=== PATIENT | male | born 1975 | race Caucasian/White ===

== ENCOUNTER 2016-11-26 13:58 | Emergency (ER) | payer MEDICAID ==
[~2016-11-26] VITALS: Ht 188 cm; Wt 77.1 kg
[2016-11-26] MEDS ORDERED: HYDRALAZINE HCL25 M1 PO (14:08)
[2016-11-26] MEDS ORDERED: LEXAPRO 20 MG T20 MG PO (14:08)
--- OUTSIDE RECORDS SUMMARY | 2016-11-26 14:22 | External Medical Summary Rpt ---
Author Author ELINA Address Unknown Phone Purpose Continuity of Care Document - through 2016
--- OUTSIDE RECORDS SUMMARY | 2016-11-26 14:22 | External Medical Summary Rpt ---
Author Author [employer] Organization [employer] Address Unknown Phone Unavailable Purpose Continuity of Care Document - through 2016
--- OUTSIDE RECORDS SUMMARY | 2016-11-26 14:22 | External Medical Summary Rpt ---
Demographics Preferred Language Jamaican Marital Status Unknown Mu-Ism Affiliation Unknown Race Unknown Ethnic Group Unknown Author Author ELINA Address Unknown Phone Immunization No patient found.
--- OUTSIDE RECORDS SUMMARY | 2016-11-26 14:22 | External Medical Summary Rpt ---
Author Author JAMILA Santacruz, JAMILA Santacruz Organization [employer] Address Unknown Phone Unavailable
--- OUTSIDE RECORDS SUMMARY | 2016-11-26 14:22 | External Medical Summary Rpt ---
Demographics Preferred Language Haitian Marital Status Unknown Gnosticism Affiliation Unknown Race Unknown Ethnic Group Unknown Author Author ELINA Address Unknown Phone Immunization No patient found.
[2016-11-26 14:37] LABS: HEMOGLOBIN 17.8 g/dL (14.1-18.0); LYMPH # 1.9 K/mm3 (0.7-4.5)
[2016-11-26] MEDS ORDERED: ETODOLAC200 MG PO (15:31)
--- NOTE | 2016-11-26 15:31 | Emergency Room Report ---
History of Present Illness Time Seen by [id number] Presenting Problem in Triage Pt arrived:Walked Presenting Problem:PT REPORTS HAS CHRONIC PANCREATITIS, REPORTS UPPER RIGHT QUADRANT AND BACK PAIN THAT BEGAN LASTNIGHT AND NAUSEA. 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 N Clinical Suspician of Infection? N Mental Status: 1 - Regular (Normal Baseline) Sepsis Risk:Low Sepsis Risk Have you (or family members/close friends) recently traveled outside the [place]? N If Yes, where/when: Have you had exposure to infectious disease within the past month? N TB? Other? Specify: Source patient, RN notes reviewed, RN/MD Exam Limitations no limitations Comment This is a 41-year-old male patient arriving to the emergency room with diffuse abdominal pain for the past 2-3 days. Patient advised that he has a history of chronic pancreatitis, secondary to alcohol abuse. He has developed his condition approximately 3 years ago, and advised he has been sober for the past 2 years. Patient denies any nausea, vomiting, fever or diarrhea at this time. He is new to this area, just moved here from [place]. He is a history of pancreatic pseudocyst, measuring 7 mm in diameter. ALLERGIES Coded Allergies: lisinopril (LIGHTHEADED 11/26/16) morphine (I-HIVES 11/26/16) Home Medications Reported Medications Escitalopram Oxalate (Lexapro 20MG) 20 MG PO DAILY Hydralazine Hcl (Hydralazine 25MG Tab) 25 MG PO BID History Medical History General CAD? No Angina: No [place]: No Hypertension? Yes Hyperlipidemia? No CHF? No DVT? No PE? No COPD? No Asthma? No Anemia? No GERD? Yes Gastric ulcers? No GI Bleed? No Hernia? No Thyroid Problems? No Hypothyroidism? No CVA? No Seizures? No Diabetes? No Renal Insuffiency? No End Stage Renal Disease? No UTI? No Stones? No GB Disease: No Nephritic Syndrome? No Asplenia? No Hepatitis? No Sickle Cell Disease? No Arthritis? No Migraines? No Cataracts? No Glaucoma? No MRSA? No HIV? No TB? No Anxiety? Yes Depression? No Cancer? No More? Yes Additional hx: CHRONIC PANCREATITIS Immunization Hx DT/Tetanus Unknown Surgical Hx Previous Surgery?Y GALLBLADDER ERCP Social History Smoking Hx Smoker: Current Every Day Smoker Tobacco: Yes Type Cigarettes Packs/day 1 1/2 - 2 Packs Alcohol Alcohol: No Review of Systems All Other Systems Reviewed and Negative Gastrointestinal abdominal pain Physical Exam Vital Signs Vital Signs Date Time Temp Pulse Resp B/P Pulse O2 O2 Flow FiO2 Ox Delivery Rate 11/26 1542 98.8 89 18 166/116 97 11/26 1404 99.0 107 18 162/113 98 General Appearance normal appearance, WD/WN, no apparent distress Respiratory Status Yes: trachea midline, chest symmetrical, non tender chest. No: respiratory distress. Lung Sounds bilateral: normal breath sounds, lungs clear. 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 No Comment 1515-patient reevaluated, he appears better, in no acute distress. Patient would like to establish himself with a new gastrointestinal specialist as well as any PCP. Will refer patient to Dr. Oralia Barreto and provided him with a PCP/ physician referral sheet for this area. This appears medically stable at this time, no additional workup is medically necessary. Results/Orders Laboratory Tests 11/26/16 1425: Sodium 141, Potassium 3.8, Chloride 106, Carbon Dioxide 25, BUN 8, Creatinine 1.0, Estimated Creat Clear 106, Estimated GFR (MDRD) 82, Glucose 125 H, Calcium 9.1, Total Bilirubin 0.5, AST 27, ALT 44, Alkaline Phosphatase 185 H, Total Protein 7.4, Albumin 3.8, Globulin 3.6 H, Albumin/Globulin Ratio 1.1, Amylase 24 L, Lipase 57 L, WBC 12.1 H, RBC 5.35, Hgb 17.8, Hct 51.7, MCV 96.7, RDW 13.5, Plt Count 239, MPV 7.6, Gran % 76.3, Gran # 9.3 H, Lymphocytes % 16.0, Monocytes % 4.9, Eosinophils % 2.3, Basophils % 0.5, Lymphocytes # 1.9, Monocytes # 0.6, Eosinophils # 0.3, Basophils # 0.1, PUBS MCHC 34.4, MCH 33.3 H , Alcohols 0 11/26/16 1402: Urine Color Cancelled, Urine Appearance Cancelled, Urine pH Cancelled, Ur Specific [place] Cancelled Current Medication Orders Sig/Luther Start time Last Medication Dose Route Stop Time Status Admin Sodium Chloride 10 ML PRN PRN 11/26 1415 DCD IV 11/27 1401 Orders Procedure Date/time Status ALCOHOL 11/26 1406 Complete IV SALINE LOCK 11/26 1402 Active LIPASE 11/26 1402 Complete CBC WITH AUTO DIFF 11/26 1402 Complete CHEM 12 PROFILE 11/26 1402 Complete AMYLASE 11/26 1402 Complete Departure Departure Time of Disposition 1529 Disposition DC Home or Self Care(routine) Clinical Impression Primary Impression: Chronic pancreatitis Qualifiers: Pancreatitis type: alcohol induced Qualified Code: K86.0 - Alcohol- induced chronic pancreatitis Condition STABLE Referrals ORALIA BARRETO: Today after leaving ER and schedule appointment Patient Instructions Chronic Pancreatitis, DI for Chronic Pain -- Adult Additional Instructions Please take the pain medications as directed, follow up with dr. Barreto within 2 days. Discharge Counseling Counseled pt/family regarding diagnosis, test results, medications/RX, home care, follow up needs Comment Please take the pain medications as directed, follow up with dr. Barreto within 2 days. Prescriptions Current Visit Scripts Etodolac 200 MG PO QIDP PRN pain #20 CAP ED Critical Care Critical Care No at 0843
[2016-11-26 15:42] VITALS: BP 166/116
== END 2016-11-26 15:42 | disposition home or self-care (01) ==
LOC: ER 13:58
PROVIDERS: Emergency Medicine
DX: K86.1 Other chronic pancreatitis (principal); Z79.899 Other long term (current) drug therapy; I10 Essential (primary) hypertension; K21.9 Gastro-esophageal reflux disease without esophagitis; Z72.0 Tobacco use

== ENCOUNTER 2016-12-19 16:19 | Observation (INO) | payer MEDICAID ==
[~2016-12-19] VITALS: Ht 185.4 cm; Wt 75.8 kg
[~2016-12-19 16:19] MED LIST: ETODOLAC200 MG PO; GABAPENTIN300 MG PO; HYDRALAZINE HCL25 M1 PO; HYDROCODONE/ACE1 TA5 PO; LEXAPRO 20 MG T20 MG PO
[2016-12-19 16:24] VITALS: BP 149/100
[2016-12-19 16:55] LABS: HEMOGLOBIN 17.6 g/dL (14.1-18.0); LYMPH # 2.2 K/mm3 (0.7-4.5); LYMPH % 23.7 % (10-50)
--- NOTE | 2016-12-19 18:06 | Emergency Room Report ---
History of Present Illness Time Seen by [id number] Presenting Problem in Triage Pt arrived:Walked Presenting Problem:PT REPORTS EPIGASTRIC AREA PAIN, N/V/D, THAT BEGAN THIS MORNING. PT REPORTS WAS SEEN AT PCP OFFICE TODAY AND WAS ADVISED TO GO TO THE ER FOR FURTHER EVALUATION. 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 N Clinical Suspician of Infection? N Mental Status: 1 - Regular (Normal Baseline) Sepsis Risk:Low Sepsis Risk Have you (or family members/close friends) recently traveled outside the [place]? N If Yes, where/when: Have you had exposure to infectious disease within the past month? N TB? Other? Specify: Source patient, RN notes reviewed, family, RN/MD Exam Limitations no limitations Comment This is a 41-year-old male patient arriving to the emergency room at the request of his family physician, Dr. Nugent, whom he has seen in [place] just SAL[employer]IST[employer]. She has been having severe abdominal pain, associated with intractable nausea and vomiting for the past 24 hour, unable to hold anything down. Patient has a history of a alcohol-induced chronic pancreatitis, currently being sober for the past one year. He has been previously worked up at [facility], by Dr. Long (GI specialist). He has recently moved to [facility], and he is looking for a family physician around this area. He has been admitted in [place] approximately one week ago in [place], where he was seen by another gastrointestinal specialist, Dr. Bowser. Dr Bowser has, according to the patient, advised him that no further procedures are medically necessary and he needs to let the pancreatitis "cool off". ALLERGIES Coded Allergies: lisinopril (LIGHTHEADED 11/26/16) morphine (I-HIVES 11/26/16) Home Medications Reported Medications Escitalopram Oxalate (Lexapro 20MG) 20 MG PO DAILY Hydralazine Hcl (Hydralazine 25MG Tab) 25 MG PO BID Gabapentin (Gabapentin 300MG) 300 MG PO QHS History Medical History General CAD? No Angina: No [place]: No Hypertension? Yes Hyperlipidemia? No CHF? No DVT? No PE? No COPD? No Asthma? No Anemia? No GERD? Yes Gastric ulcers? No GI Bleed? No Hernia? No Thyroid Problems? No Hypothyroidism? No CVA? No Seizures? No Diabetes? No Renal Insuffiency? No End Stage Renal Disease? No UTI? No Stones? No GB Disease: No Nephritic Syndrome? No Asplenia? No Hepatitis? No Sickle Cell Disease? No Arthritis? No Migraines? No Cataracts? No Glaucoma? No MRSA? No HIV? No TB? No Anxiety? Yes Depression? No Cancer? No More? Yes Additional hx: CHRONIC PANCREATITIS Immunization Hx DT/Tetanus Unknown Surgical Hx Previous Surgery?Y GALLBLADDER ERCP Social History Smoking Hx Smoker: Current Every Day Smoker Tobacco: Yes Type Cigarettes Packs/day 1 1/2 - 2 Packs Alcohol Alcohol: No Review of Systems All Other Systems Reviewed and Negative Gastrointestinal abdominal pain, nausea, vomiting Physical Exam Vital Signs Vital Signs Date Time Temp Pulse Resp B/P Pulse O2 O2 Flow FiO2 Ox Delivery Rate 12/19 1757 89 18 133/85 96 12/19 1657 18 12/19 1624 98.1 96 18 149/100 97 General Appearance normal appearance, WD/WN, moderate distress Respiratory Status Yes: trachea midline, chest symmetrical, non tender chest. No: respiratory distress. Lung Sounds bilateral: normal breath sounds, lungs clear. 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 No Comment 18:30 - Case discussed with Dr. Stout, advised of the CAT scan findings, presentation and findings. Patient refusing to be transferred to [place], stating that he has already seen Dr. Niels chaudhry/ Anel who has infomred him that no GI procedures are medically necessary at this time. 18:30-Dr. Stout agreeable with hospitalization, will keep patient nothing by mouth and continue IV hydration pain medications. Results/Orders Laboratory Tests 12/19/16 1645: Sodium 143, Potassium 3.6, Chloride 106, Carbon Dioxide 27, BUN 11, Creatinine 0.9, Estimated Creat Clear 118, Estimated GFR (MDRD) 93, Glucose 100, Calcium 8.9, Total Bilirubin 0.6, AST 47 H, ALT 131 H, Alkaline Phosphatase 258 H, Total Protein 7.2, Albumin 3.8, Globulin 3.4 H, Albumin/Globulin Ratio 1.1, Amylase 53, Lipase 501 H, WBC 9.1, RBC 5.30, Hgb 17.6, Hct 52.1 H, MCV 98.3 H , RDW 13.8, Plt Count 222, MPV 7.7, Gran % 65.5, Gran # 5.9, Lymphocytes % 23.7, Monocytes % 5.3, Eosinophils % 5.0, Basophils % 0.5, Lymphocytes # 2.2, Monocytes # 0.5, Eosinophils # 0.5 H, Basophils # 0.1, PUBS MCHC 33.8, MCH 33.2 H Current Medication Orders Sig/Luther Start time Last Medication Dose Route Stop Time Status Admin Iopamidol 75 ML ONCE ONE 12/19 1715 UNV 12/19 IV 12/19 171 1711 Sodium Chloride 10 ML ONCE ONE 12/19 1715 UNV 12/19 IV 12/19 1716 1711 Ketorolac 0 .STK-MED ONE 12/19 1651 DC Tromethamine .ROUTE Ondansetron HCl 0 .STK-MED ONE 12/19 1651 DC .ROUTE Sodium Chloride 1,000 ML .STK-MED ONE 12/19 1651 DC IV Ketorolac 30 MG ONCE ONE 12/19 1630 DC 12/19 Tromethamine IV 12/19 1631 1657 Ondansetron HCl 4 MG ONCE ONE 12/19 1630 DC 12/19 IV 12/19 1631 1657 Sodium Chloride 10 ML PRN PRN 12/19 1630 AC IV 12/20 1621 Sodium Chloride 1,000 ML .Q1H1M 12/19 1630 DC 12/19 IV 12/19 1730 1658 Sodium Chloride 10 ML PRN PRN 12/19 1630 AC IV 12/20 1623 Orders Procedure Date/time Status DIET-NOTHING BY MOUTH 12/[address] ABD & PELVIS W/ CONTRAST 12/[address] ABD/PELVIS REQ 12/19 1622 Complete IV SALINE LOCK 12/19 1622 Active URINALYSIS/COMPLETE 12/19 1622 Active LIPASE 12/19 1622 Complete DRUG ABUSE SCREEN (10) 12/19 1622 Active CBC WITH AUTO DIFF 12/19 1622 Complete CHEM 12 PROFILE 12/19 1622 Complete AMYLASE 12/19 1622 Complete XRAY/CT/US XRAY/CT/US CT abdomen, pelvis CT interpretation by discussed w/radiologist CT Results abnormal Comment CT scan abdomen and pelvis with IV contrast shows appearance compatible with mild, acute on chronic pancreatitis, secondary to the level of the head. Departure Departure Time of Disposition 1805 Disposition Still a Patient Clinical Impression Primary Impression: Acute pancreatitis Qualifiers: Pancreatitis type: unspecified pancreatitis type Acute pancreatitis complication: unspecified Qualified Code: K85.90 - Acute pancreatitis without necrosis or infection, unspecified Condition STABLE ED Critical Care Critical Care No at 1849
--- NOTE | 2016-12-19 18:06 | Emergency Room Report ---
History of Present Illness Time Seen by [id number] Presenting Problem in Triage Pt arrived:Walked Presenting Problem:PT REPORTS EPIGASTRIC AREA PAIN, N/V/D, THAT BEGAN THIS MORNING. PT REPORTS WAS SEEN AT PCP OFFICE TODAY AND WAS ADVISED TO GO TO THE ER FOR FURTHER EVALUATION. 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 N Clinical Suspician of Infection? N Mental Status: 1 - Regular (Normal Baseline) Sepsis Risk:Low Sepsis Risk Have you (or family members/close friends) recently traveled outside the [place]? N If Yes, where/when: Have you had exposure to infectious disease within the past month? N TB? Other? Specify: Source patient, RN notes reviewed, family, RN/MD Exam Limitations no limitations Comment This is a 41-year-old male patient arriving to the emergency room at the request of his family physician, Dr. 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 She has been having severe abdominal pain, associated with intractable nausea and vomiting for the past 24 hour, unable to hold anything down. Patient has a history of a alcohol-induced chronic pancreatitis, currently being sober for the past one year. He has been previously worked up at [facility], by Dr. Long (GI specialist). He has recently moved to [facility], and he is looking for a family physician around this area. He has been admitted in [place] approximately one week ago in [place], where he was seen by another gastrointestinal specialist, Dr. Bowser. Dr Bowser has, according to the patient, advised him that no further procedures are medically necessary and he needs to let the pancreatitis "cool off". ALLERGIES Coded Allergies: lisinopril (LIGHTHEADED 11/26/16) morphine (I-HIVES 11/26/16) Home Medications Reported Medications Escitalopram Oxalate (Lexapro 20MG) 20 MG PO DAILY Hydralazine Hcl (Hydralazine 25MG Tab) 25 MG PO BID Gabapentin (Gabapentin 300MG) 300 MG PO QHS History Medical History General CAD? No Angina: No [place]: No Hypertension? Yes Hyperlipidemia? No CHF? No DVT? No PE? No COPD? No Asthma? No Anemia? No GERD? Yes Gastric ulcers? No GI Bleed? No Hernia? No Thyroid Problems? No Hypothyroidism? No CVA? No Seizures? No Diabetes? No Renal Insuffiency? No End Stage Renal Disease? No UTI? No Stones? No GB Disease: No Nephritic Syndrome? No Asplenia? No Hepatitis? No Sickle Cell Disease? No Arthritis? No Migraines? No Cataracts? No Glaucoma? No MRSA? No HIV? No TB? No Anxiety? Yes Depression? No Cancer? No More? Yes Additional hx: CHRONIC PANCREATITIS Immunization Hx DT/Tetanus Unknown Surgical Hx Previous Surgery?Y GALLBLADDER ERCP Social History Smoking Hx Smoker: Current Every Day Smoker Tobacco: Yes Type Cigarettes Packs/day 1 1/2 - 2 Packs Alcohol Alcohol: No Review of Systems All Other Systems Reviewed and Negative Gastrointestinal abdominal pain, nausea, vomiting Physical Exam Vital Signs Vital Signs Date Time Temp Pulse Resp B/P Pulse O2 O2 Flow FiO2 Ox Delivery Rate 12/19 1757 89 18 133/85 96 12/19 1657 18 12/19 1624 98.1 96 18 149/100 97 General Appearance normal appearance, WD/WN, moderate distress Respiratory Status Yes: trachea midline, chest symmetrical, non tender chest. No: respiratory distress. Lung Sounds bilateral: normal breath sounds, lungs clear. 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 No Comment 18:30 - Case discussed with Dr. Stout, advised of the CAT scan findings, presentation and findings. Patient refusing to be transferred to [place], stating that he has already seen Dr. Niels chaudhry/ Anel who has infomred him that no GI procedures are medically necessary at this time. 18:30-Dr. Stout agreeable with hospitalization, will keep patient nothing by mouth and continue IV hydration pain medications. Results/Orders Laboratory Tests 12/19/16 1645: Sodium 143, Potassium 3.6, Chloride 106, Carbon Dioxide 27, BUN 11, Creatinine 0.9, Estimated Creat Clear 118, Estimated GFR (MDRD) 93, Glucose 100, Calcium 8.9, Total Bilirubin 0.6, AST 47 H, ALT 131 H, Alkaline Phosphatase 258 H, Total Protein 7.2, Albumin 3.8, Globulin 3.4 H, Albumin/Globulin Ratio 1.1, Amylase 53, Lipase 501 H, WBC 9.1, RBC 5.30, Hgb 17.6, Hct 52.1 H, MCV 98.3 H , RDW 13.8, Plt Count 222, MPV 7.7, Gran % 65.5, Gran # 5.9, Lymphocytes % 23.7, Monocytes % 5.3, Eosinophils % 5.0, Basophils % 0.5, Lymphocytes # 2.2, Monocytes # 0.5, Eosinophils # 0.5 H, Basophils # 0.1, PUBS MCHC 33.8, MCH 33.2 H Current Medication Orders Sig/Luther Start time Last Medication Dose Route Stop Time Status Admin Iopamidol 75 ML ONCE ONE 12/19 1715 UNV 12/19 IV 12/19 171 1711 Sodium Chloride 10 ML ONCE ONE 12/19 1715 UNV 12/19 IV 12/19 1716 1711 Ketorolac 0 .STK-MED ONE 12/19 1651 DC Tromethamine .ROUTE Ondansetron HCl 0 .STK-MED ONE 12/19 1651 DC .ROUTE Sodium Chloride 1,000 ML .STK-MED ONE 12/19 1651 DC IV Ketorolac 30 MG ONCE ONE 12/19 1630 DC 12/19 Tromethamine IV 12/19 1631 1657 Ondansetron HCl 4 MG ONCE ONE 12/19 1630 DC 12/19 IV 12/19 1631 1657 Sodium Chloride 10 ML PRN PRN 12/19 1630 AC IV 12/20 1621 Sodium Chloride 1,000 ML .Q1H1M 12/19 1630 DC 12/19 IV 12/19 1730 1658 Sodium Chloride 10 ML PRN PRN 12/19 1630 AC IV 12/20 1623 Orders Procedure Date/time Status DIET-NOTHING BY MOUTH 12/[address] ABD & PELVIS W/ CONTRAST 12/[address] ABD/PELVIS REQ 12/19 1622 Complete IV SALINE LOCK 12/19 1622 Active URINALYSIS/COMPLETE 12/19 1622 Active LIPASE 12/19 1622 Complete DRUG ABUSE SCREEN (10) 12/19 1622 Active CBC WITH AUTO DIFF 12/19 1622 Complete CHEM 12 PROFILE 12/19 1622 Complete AMYLASE 12/19 1622 Complete XRAY/CT/US XRAY/CT/US CT abdomen, pelvis CT interpretation by discussed w/radiologist CT Results abnormal Comment CT scan abdomen and pelvis with IV contrast shows appearance compatible with mild, acute on chronic pancreatitis, secondary to the level of the head. Departure Departure Time of Disposition 1805 Disposition Still a Patient Clinical Impression Primary Impression: Acute pancreatitis Qualifiers: Pancreatitis type: unspecified pancreatitis type Acute pancreatitis complication: unspecified Qualified Code: K85.90 - Acute pancreatitis without necrosis or infection, unspecified Condition STABLE ED Critical Care Critical Care No at 1843
[2016-12-19 19:28] VITALS: BP 149/102
[2016-12-19 20:30] VITALS: BP 122/69
[2016-12-19] MEDS ORDERED: GABAPENTIN300 MG PO (20:53)
[2016-12-19] MEDS ORDERED: METHOCARBAMOL500 MG PO (20:53)
[2016-12-19 23:43] VITALS: BP 116/71
[2016-12-20 04:11] VITALS: BP 145/101
--- NOTE | 2016-12-20 07:33 | PHARMACY CLINIC NOTE ---
Patient Demographics Patient Demographics Admission date: 12/19/16 Date: 12/20/16 Time: 0732 Allergies Coded Allergies: lisinopril (LIGHTHEADED 11/26/16) morphine (I-HIVES 11/26/16) HEIGHT- FT: 6 IN: 1.00 K.751 VTE General Information Labs: Laboratory Tests 12/19 1645 Hematology Hgb (14.1 - 18.0 g/dL) 17.6 Hct (42.0 - 52.0 %) 52.1 H Plt Count (142 - 424 K/mm3) 222 Disclaimer The following section includes nursing documentation that has been pulled in for pharmacy review. Patient's VTE score: 1 Patient's VTE Risk: VERY LOW RISK Clinical trial participant? No VTE prophylaxis NQF [id number] VTE prophylaxis ordered? Yes Type of prophylaxis/treatment: [place] at 0732
[2016-12-20 07:43] VITALS: BP 153/97
--- NOTE | 2016-12-20 08:34 | RADIOLOGY REPORT PS360 ---
CT ABD PELVIS W/ CONTRAST CLINICAL INDICATION: Generalized abdominal pain, history of pancreatitis ABD PAIN ORDERING PHYSICIAN: Vadim Stout MD PATIENT AGE: 41 years COMPARISON: None TECHNIQUE: Axial images obtained with sagittal and coronal reformats. PROCEDURE: Oral Contrast: None IV Contrast: 75 mL [id number]. FINDINGS: The lung bases are clear. No focal liver lesion is evident. There has been a prior cholecystectomy. There is prominent intra and extrahepatic biliary ductal dilatation. Pancreatic duct is also dilated with a somewhat beaded appearance the common bile duct measures up to 15 mm. There is a rounded isodensity in the pancreatic head at 7 mm. May be some mild edema of the pancreatic head. There is a somewhat involutional appearance on the pancreatic body and tail which could be secondary to prior pancreatitis or obstruction of the pancreatic duct from neoplasm. No obvious filling defects within the common bile duct. The spleen and adrenal glands are unremarkable. Nonobstructing 5 mm stone is present in the lower pole the right kidney. A 3 mm stone is present in the upper pole the right kidney. No hydronephrosis or ureteral calculi. No evidence of appendicitis. There is thickening of the descending and sigmoid colon which may be due to nondistention or colitis. No evidence of diverticulitis. No abscess no intestinal obstruction or free air. No acute bony anomalies. IMPRESSION: 1. Intra and extrahepatic biliary dilatation with also dilated pancreatic duct in the body and tail with somewhat attenuated appearance in the head of the pancreas. Pancreatic neoplasm could cause this finding. Distal common duct stricture or common duct stones are also considered. Consider MRCP or ERCP for further evaluation. 2. The pancreatic duct is dilated in the body and tail with somewhat deviated appearance which may be seen with chronic pancreatitis. Pancreatic head appears slightly edematous. Acute upon chronic pancreatitis is also a consideration. There are no previous studies available at this institution for comparison. A 7 mm isodense is present in the head of the pancreas and is nonspecific and could be part of the pancreatic duct. Small cystic neoplasm is a consideration as well. 3. Bilateral nephrolithiasis. 4. Thickened descending and sigmoid colon which may be related to colitis or nondistention
[2016-12-20 09:08] VITALS: BP 153/97
[2016-12-20] MEDS ORDERED: PERCOCET1 TAB PO (12:56)
--- NOTE | 2016-12-20 12:58 | ACUTE CARE PROGRESS NOTE (QUA) ---
Progress Notes Subjective Date 12/20/16 Time 1257 Note Patient's pain has diminished, he is tolerating a full liquid diet and wants to go home. Assessment/Plan This inpt stay is expected to cross 2 MNs from start of care No Comments: Discharge home now, f/u with GI in 3 days and primary MD in 6 days. 2 day supply of Percocet given to patient. at 1256
[2016-12-20 13:11] VITALS: BP 153/97
--- NOTE | 2016-12-20 17:04 | Discharge Summary Standard ---
HP/DC combined (FCA) Date of admission: 12/19/16 Chief complaint: Pancreatitis History: History of Present Illness: This is a 41-year-old male patient who came to the emergency room at the request of his family physician, Dr. Nugent, whom he had seen in [place] just prior to arrival. He has been having severe abdominal pain, associated with intractable nausea and vomiting, for the past 24 hour, unable to hold anything down. 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 He has been previously worked up at [facility], by Dr. Long (GI specialist). He has recently moved to [place], [place], and he is looking for a family physician around this area. He had been admitted in [place] approximately one week ago where he was seen by another gastrointestinal specialist, Dr. Bowser. Dr Bowser has, according to the patient, advised him that no further procedures are medically necessary and he needs to let the pancreatitis "cool off". Upon arrival, his lipase was elevated, amylase was normal. His CT was compatible with mild acute on chronic pancreatitis. The case was discussed with Dr. Stout and he was admitted for IV hydration and pain control. This morning he is resting quietly with pain and nausea both well-controlled with prn medications. He has had no further emesis, has been up ad grey without difficulty. He is feeling better and would like to discuss discharge with the doctor. Past Medical History: Medical History: CAD? No Angina: No [place]: No Hypertension? Yes Hyperlipidemia? No CHF? No DVT? No PE? No COPD? No Asthma? No Anemia? No GERD? Yes Gastric ulcers? No GI Bleed? No Hernia? No Thyroid Problems? No Hypothyroidism? No CVA? No Seizures? No Diabetes? No Renal Insuffiency? No UTI? Yes Stones? Yes GB Disease: No Nephritic Syndrome? No Asplenia? No Hepatitis? No Sickle Cell Disease? No Arthritis? No Migraines? No Cataracts? No Glaucoma? No MRSA? No HIV? No TB? No Anxiety? Yes Depression? Yes Cancer? No More? Yes Additional hx: CHRONIC PANCREATITIS Surgical history: Previous Surgery?Y 1. GALLBLADDER 2. ERCP 3. [place] toot extraction Medications: Reported Medications Gabapentin (Gabapentin 300MG) 600 MG PO QHS Gabapentin (Gabapentin 300MG) 300 MG PO QAM METHOCARBAMOL (Methocarbamol) 500 MG PO TID Escitalopram Oxalate (Lexapro 20MG) 20 MG PO DAILY Hydralazine Hcl (Hydralazine 25MG Tab) 25 MG PO BID Allergies: Coded Allergies: lisinopril (LIGHTHEADED 11/26/16) morphine (I-HIVES 11/26/16) Family History: Family history: Postive for: CAD, DM, HTN, cancer, hyperlipidemia, stroke. Negative for: CAD under 40 yrs of age, seizure. Social History: Smoking Hx: Tobacco: Yes Smoker: Current Every Day Smoker Type: Cigarettes Packs/day: < 1 Pack Are you/the child exposed to second-hand smoke: Yes Alcohol: Alcohol: No When was your last drink sober since 2015 Hx of Drug Use: Drug Use? 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 No Constitutional Positive for: chills, fatigue, weak. ENT No: nasal congestion, sinus problems, sore throat. Cardiovascular No: REYNA, chest pain, edema, palpitations. Respiratory No: shortness of air, productive cough (sputum). GI Positive for: GERD, abdominal pain, diarrhea, nausea, vomitting. No: constipation, hematemeis. (male) No: frequency, hematuria. Skin No: ecchymosis, itching, rash. Neurological No: change in LOC, confusion, dizziness, light headed, syncope. Immune/allergy No: itching. Eyes No: blurry vision, vision loss. Musculoskeletal Positive for: extremity pain, joint pain. Heme No: bleeding, bruising. Psychiatric Positive for: anxious. No: confused, change in mental status. Vital signs: Vital Signs Result Date Time Pulse Ox 97 12/19 1624 B/P 149/100 12/19 1624 Temp 98.1 12/19 1624 Pulse 96 12/19 1624 Resp 18 12/19 1624 O2 Delivery ROOM AIR 12/19 1928 Physical Exam: Exam: General appearance: alert, awake, no acute distress Eyes: anicteric, PERRLA ENT: mucous membranes moist, pharynx normal Neck: supple, no LAD Cardiovascular: regular rate & rhythm, normal peripheral pulses Respiratory: CTAB A&P ABD: non-distended, no rebound, soft, no guarding, no organomegaly, no palpable mass, bowel sounds present, ttp RUQ and epigastrium Extremities: moves all, no peripheral edema Skin: dry, intact, warm 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, 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, oriented, speech clear Lab data: Labs: Laboratory Tests 12/20/16 1105: Amylase 62, Lipase 635 H 12/19/16 1645: Sodium 143, Potassium 3.6, Chloride 106, Carbon Dioxide 27, BUN 11, Creatinine 0.9, Estimated Creat Clear 118, Estimated GFR (MDRD) 93, Glucose 100, Calcium 8.9, Total Bilirubin 0.6, AST 47 H, ALT 131 H, Alkaline Phosphatase 258 H, Total Protein 7.2, Albumin 3.8, Globulin 3.4 H, Albumin/Globulin Ratio 1.1, Amylase 53, Lipase 501 H, WBC 9.1, RBC 5.30, Hgb 17.6, Hct 52.1 H, MCV 98.3 H , RDW 13.8, Plt Count 222, MPV 7.7, Gran % 65.5, Gran # 5.9, Lymphocytes % 23.7, Monocytes % 5.3, Eosinophils % 5.0, Basophils % 0.5, Lymphocytes # 2.2, Monocytes # 0.5, Eosinophils # 0.5 H, Basophils # 0.1, PUBS MCHC 33.8, MCH 33.2 H Radiology results: Results: 12/19/16 CT Abdomen and Pelvis with IV contrast IMPRESSION: 1. Intra and extrahepatic biliary dilatation with also dilated pancreatic duct in the body and tail with somewhat attenuated appearance in the head of the pancreas. Pancreatic neoplasm could cause this finding. Distal common duct stricture or common duct stones are also considered. Consider MRCP or ERCP for further evaluation. 2. The pancreatic duct is dilated in the body and tail with somewhat deviated appearance which may be seen with chronic pancreatitis. Pancreatic head appears slightly edematous. Acute upon chronic pancreatitis is also a consideration. There are no previous studies available at this institution for comparison. A 7 mm isodense is present in the head of the pancreas and is nonspecific and could be part of the pancreatic duct. Small cystic neoplasm is a consideration as well. 3. Bilateral nephrolithiasis. 4. Thickened descending and sigmoid colon which may be related to colitis or nondistention Diagnosis(es): 1. Chronic pancreatitis 2. Acute pancreatitis Plan: Will continue IVF and advance diet. May consider discharge later today. Course: The patient was tolerating full liquid diet without emesis. His pain was well- managed. He made several trips off the nursing floor. By the afternoon it was felt that he was stable for discharge home. He was instructed to f/u with GI in 3 days and PCP in 6 days. Discharge medications: Continue taking these medications: Escitalopram Oxalate (Lexapro 20MG) 20 MG TABLET 20 MILLIGRAM ORAL DAILY Hydralazine Hcl (Hydralazine 25MG Tab) 25 MG TABLET 25 MILLIGRAM ORAL TWICE A DAY Gabapentin (Gabapentin 300MG) 300 MG CAPSULE 600 MILLIGRAM ORAL AT BEDTIME NIGHTLY Gabapentin (Gabapentin 300MG) 300 MG CAPSULE 300 MILLIGRAM ORAL EVERY MORNING METHOCARBAMOL (Methocarbamol) 500 MG TABLET 500 MILLIGRAM ORAL THREE TIMES A DAY Start taking the following new medications: OXYCODONE HCL/ACETAMINOPHEN (Percocet 5-325 MG Tablet) 1 EACH TABLET 1 TABLET ORAL EVERY 6 HOURS NEEDED as needed for MODERATE TO SEVERE PAIN Qty = 8 No Refills Disposition: Follow up with: OTHER Follow up: 6 DAYS Activity: Cont Current activity Diet: Continue same diet Discharge to: HOME Agency needed? N at 1704
--- OUTSIDE RECORDS SUMMARY | 2017-01-19 08:08 | External Medical Summary Rpt ---
Author Author , ELINA Vang ELINA Address Unknown Phone [email or web address] Purpose Continuity of Care Document - 11-26-2016 through 2016 Results Labs Lab Lab Date Result Refere Interp Status Commen Order Detail nces retati t Range on Drugs identified in Urine by Screen method (12-31-2016 13:40) Ampheta NEGATIV <1000 complet mine 017 E ed [Presen 13:40 ce] in Urine by Screen method 11-Hydr NEGATIV <50 complet oxy 017 E ed delta-9 13:40 tetrahy drocann abinol [Presen ce] in Unspeci fied specime n Urinalysis dipstick W Reflex Microscopic panel in Urine (12-31-2016 13:40) Bacteri 1+ O complet a 017 ed [Presen 13:40 ce] in Urine sedimen t by Light microsc opy Mucus OCC NONE complet [Presen 017 ed ce] in 13:40 Urine sedimen t by Light microsc opy Erythro 3-5 0 complet cytes 017 ed [Presen 13:40 ce] in Urine sedimen t by Light microsc opy Epithel OCC OCC complet ial 017 ed cells.s 13:40 quamous [Presen ce] in Urine sedimen t by Microsc opy high power field Urinalysis dipstick W Reflex Microscopic panel in Urine (12-31-2016 13:40) Appeara CLEAR CLEAR complet nce of 017 ed Urine 13:40 Bilirub 1+ NEG Abnorma complet in 017 l ed [Presen 13:40 ce] in Urine by Test strip Erythro TRACE-I NEG complet cytes 017 NTACT ed [Presen 13:40 ce] in Urine Color YELLOW YELLOW complet of 017 ed Urine 13:40 Ketones NEGATIV NEG complet 017 E ed [Presen 13:40 ce] in Urine by Automat ed test strip Mucus NEGATIV NEG complet [Presen 017 E ed ce] in 13:40 Urine sedimen t by Light microsc opy Nitrite NEGATIV NEG complet 017 E ed [Presen 13:40 ce] in Urine by Test strip Urobili 0.2 NEG complet nogen 017 ed [Presen 13:40 ce] in Urine by Test strip Urinalysis dipstick W Reflex Microscopic panel in Urine (12-28-2016 21:30) Bacteri 1+ O complet a 017 ed [Presen 21:30 ce] in Urine sedimen t by Light microsc opy Mucus 2+ NONE complet [Presen 017 ed ce] in 21:30 Urine sedimen t by Light microsc opy Erythro 3-5 0 complet cytes 017 ed [Presen 21:30 ce] in Urine sedimen t by Light microsc opy Epithel 12-28- 3-5 OCC complet ial 017 ed cells.s 21:30 quamous [Presen ce] in Urine sedimen t by Microsc opy high power field Drugs identified in Urine by Screen method (12-28-2016 21:30) Ampheta NEGATIV <1000 complet mine 017 E ed [Presen 21:30 ce] in Urine by Screen method 11-Hydr NEGATIV <50 complet oxy 017 E ed delta-9 21:30 tetrahy drocann abinol [Presen ce] in Unspeci fied specime n Urinalysis dipstick W Reflex Microscopic panel in Urine (12-28-2016 21:30) Appeara CLEAR CLEAR complet nce of 017 ed Urine 21:30 Bilirub NEGATIV NEG complet in 017 E ed [Presen 21:30 ce] in Urine by Test strip Erythro NEGATIV NEG complet cytes 017 E ed [Presen 21:30 ce] in Urine Color YELLOW YELLOW complet of 017 ed Urine 21:30 Ketones NEGATIV NEG complet 017 E ed [Presen 21:30 ce] in Urine by Automat ed test strip Mucus 12-28-2 NEGATIV NEG complet [Presen 017 E ed ce] in 21:30 Urine sedimen t by Light microsc opy Nitrite 16-2 NEGATIV NEG complet 017 E ed [Presen 21:30 ce] in Urine by Test strip Urobili -16-2 0.2 NEG complet nogen 017 ed [Presen 21:30 ce] in Urine by Test strip Urinalysis dipstick W Reflex Microscopic panel in Urine (12-23-2016 21:20) Bacteri TRACE O complet a 017 ed [Presen 21:20 ce] in Urine sedimen t by Light microsc opy Erythro OCC 0 complet cytes 017 ed [Presen 21:20 ce] in Urine sedimen t by Light microsc opy Epithel 12-23-2 OCC OCC complet ial 017 ed cells.s 21:20 quamous [Presen ce] in Urine sedimen t by Microsc opy high power field Urinalysis dipstick W Reflex Microscopic panel in Urine (12-23-2016 21:20) Appeara CLEAR CLEAR complet nce of 017 ed Urine 21:20 Bilirub NEGATIV NEG complet in 017 E ed [Presen 21:20 ce] in Urine by Test strip Erythro NEGATIV NEG complet cytes 017 E ed [Presen 21:20 ce] in Urine Color YELLOW YELLOW complet of 017 ed Urine 21:20 Ketones NEGATIV NEG complet 017 E ed [Presen 21:20 ce] in Urine by Automat ed test strip Mucus 12-23-2 NEGATIV NEG complet [Presen 017 E ed ce] in 21:20 Urine sedimen t by Light microsc opy Nitrite --2 NEGATIV NEG complet 017 E ed [Presen 21:20 ce] in Urine by Test strip Urobili --2 0.2 NEG complet nogen 017 ed [Presen 21:20 ce] in Urine by Test strip Drugs identified in Urine by Screen method (12-17-2016 15:40) Ampheta 12-17-2 NEGATIV <1000 complet mine 017 E ed [Presen 15:40 ce] in Urine by Screen method 11-Hydr NEGATIV <50 complet oxy 017 E ed delta-9 15:40 tetrahy drocann abinol [Presen ce] in Unspeci fied specime n Urinalysis dipstick W Reflex Microscopic panel in Urine (12-17-2016 15:40) Bacteri 2+ O complet a 017 ed [Presen 15:40 ce] in Urine sedimen t by Light microsc opy Mucus 4+ NONE complet [Presen 017 ed ce] in 15:40 Urine sedimen t by Light microsc opy Erythro OCC 0 complet cytes 017 ed [Presen 15:40 ce] in Urine sedimen t by Light microsc opy Epithel OCC OCC complet ial 017 ed cells.s 15:40 quamous [Presen ce] in Urine sedimen t by Microsc opy high power field Urinalysis dipstick W Reflex Microscopic panel in Urine (12-17-2016 15:40) Appeara CLEAR CLEAR complet nce of 017 ed Urine 15:40 Bilirub 2+ NEG Abnorma complet in 017 l ed [Presen 15:40 ce] in Urine by Test strip Erythro NEGATIV NEG complet cytes 017 E ed [Presen 15:40 ce] in Urine Color DK YELLOW complet of 017 YELLOW ed Urine 15:40 Ketones TRACE NEG Abnorma complet 017 l ed [Presen 15:40 ce] in Urine by Automat ed test strip Mucus NEGATIV NEG complet [Presen 017 E ed ce] in 15:40 Urine sedimen t by Light microsc opy Nitrite NEGATIV NEG complet 017 E ed [Presen 15:40 ce] in Urine by Test strip Urobili 1.0 NEG complet nogen 017 ed [Presen 15:40 ce] in Urine by Test strip
--- OUTSIDE RECORDS SUMMARY | 2017-01-19 08:08 | External Medical Summary Rpt ---
Author Author , JAMILA MARINO Address Unknown Phone [email or web address] Immunization Name Date Rout CVX Reac Dose Comm Prov Is Faci e tion ent ider Refu lity Give sed n Infl 08-2 Intr 150 0.5 Hist KHAF No RITE uenz 3-20 amus mL oric SUZIE AID0 a 17 cula al AYMA 3938 Quad r Info N Inj rmat ion - Sour ce Unsp ecif ied
--- OUTSIDE RECORDS SUMMARY | 2017-01-19 08:08 | External Medical Summary Rpt ---
Author Author , JAMILA MARINO Address Unknown Phone [email or web address] Immunization Name Date Rout CVX Reac Dose Comm Prov Is Faci e tion ent ider Refu lity Give sed n Infl 08-2 Intr 150 0.5 Hist KHAF No RITE uenz 3-20 amus mL oric SUZIE AID0 a 17 cula al AYMA 3938 Quad r Info N Inj rmat ion - Sour ce Unsp ecif ied
--- OUTSIDE RECORDS SUMMARY | 2017-01-19 08:08 | External Medical Summary Rpt ---
Author Author , ELINA Vang ELINA Address Unknown Phone [email or web address] Purpose Continuity of Care Document - 11-26-2016 [...]
--- OUTSIDE RECORDS SUMMARY | 2017-01-19 08:10 | External Medical Summary Rpt ---
Author Author JAMILA Santacruz, [employer] Organization [employer] Address Unknown Phone Unavailable Results DIARRHEA PANEL,PCR Observa Value Referen Units Interpr Notes Date tion ce etation Range Adenovi NOT NOT No No No Sep 20 conner DETECTE DETECTE informa informa informa 2017 40+41 D tion in tion in tion in 2:25 PM Ag source source source [Presen data data data ce] in Stool Aeromon NOT NOT No No No Sep 20 as DETECTE DETECTE informa informa informa 2017 salmoni D tion in tion in tion in 2:25 PM david source source source [Presen data data data ce] in Unspeci fied specime n Astrovi NOT NOT No No No Sep 20 conner DETECTE DETECTE informa informa informa 2017 [Presen D tion in tion in tion in 2:25 PM ce] in source source source Stool data data data by Electro n microsc opy Campylo NOT NOT No No No Sep 20 bacter DETECTE DETECTE informa informa informa 2017 sp Ab D tion in tion in tion in 2:25 PM [Presen source source source ce] in data data data Serum Clostri NOT NOT No No No Sep 20 dium DETECTE DETECTE informa informa informa 2017 diffici D tion in tion in tion in 2:25 PM le source source source toxin data data data A+B [Presen ce] in Stool Cryptos NOT NOT No No No Sep 20 poridiu DETECTE DETECTE informa informa informa 2017 m sp Ag D tion in tion in tion in 2:25 PM source source source [Presen data data data ce] in Unspeci fied specime n Cyclosp NOT NOT No No No Sep 20 ora DETECTE DETECTE informa informa informa 2017 cayetan D tion in tion in tion in 2:25 PM lashae source source source [Presen data data data ce] in Unspeci fied specime n Escheri NOT NOT No No No Sep 20 frankie DETECTE DETECTE informa informa informa 2017 coli D tion in tion in tion in 2:25 PM [Presen source source source ce] in data data data Unspeci fied specime n by Culture FDA method Escheri NOT NOT No No No Sep 20 frankie DETECTE DETECTE informa informa informa 2017 coli D tion in tion in tion in 2:25 PM [Presen source source source ce] in data data data Unspeci fied specime n by Culture FDA method Escheri NOT NOT No No No Sep 20 frankie DETECTE DETECTE informa informa informa 2017 coli D tion in tion in tion in 2:25 PM Shiga-l source source source werner data data data toxin 1 assa Escheri NOT NOT No No No Sep 20 frankie DETECTE DETECTE informa informa informa 2017 coli D tion in tion in tion in 2:25 PM [id number] source source source data data data [Presen ce] in Stool by Organis m specifi c culture Entamoe NOT NOT No No No Sep 20 ba DETECTE DETECTE informa informa informa 2017 histoly D tion in tion in tion in 2:25 PM kaiser source source source [Presen data data data ce] in Stool by Trichro me stain Giardia NOT NOT No No No Sep 20 DETECTE DETECTE informa informa informa 2017 lamblia D tion in tion in tion in 2:25 PM Ag source source source [Presen data data data ce] in Stool Norovir NOT NOT No No No Sep 20 us Ag DETECTE DETECTE informa informa informa 2017 [Presen D tion in tion in tion in 2:25 PM ce] in source source source Stool data data data Stool NOT NOT No No No Sep 20 Plesiom DETECTE DETECTE informa informa informa 2017 onas D tion in tion in tion in 2:25 PM shigell source source source oides data data data DNA detec Rotavir NOT NOT No No No Sep 20 us RNA DETECTE DETECTE informa informa informa 2017 detecti D tion in tion in tion in 2:25 PM on by source source source probe data data data and tar Salmone NOT NOT No No No Sep 20 lla sp DETECTE DETECTE informa informa informa 2017 DNA D tion in tion in tion in 2:25 PM [Identi source source source fier] data data data in Unspeci fied specime n by Probe & target amplifi cation method Caliciv NOT NOT No No No Sep 20 irus DETECTE DETECTE informa informa informa 2017 [Identi D tion in tion in tion in 2:25 PM fier] source source source in data data data Stool by Electro n microsc opy Escheri NOT NOT No No No Sep 20 frankie DETECTE DETECTE informa informa informa 2017 coli D tion in tion in tion in 2:25 PM [Presen source source source ce] in data data data Unspeci fied specime n by Culture FDA method Escheri NOT NOT No No No Sep 20 frankie DETECTE DETECTE informa informa informa 2017 coli D tion in tion in tion in 2:25 PM SXT source source source gene+H7 data data data gene [Identi fier] in Unspeci fied specime n by Probe & target amplifi cation method Vibrio NOT NOT No No No Sep 20 cholera DETECTE DETECTE informa informa informa 2017 e DNA D tion in tion in tion in 2:25 PM [Presen source source source ce] in data data data Unspeci fied specime n by Probe & target amplifi cation method Vibrio NOT NOT No No No Sep 20 sp DNA DETECTE DETECTE informa informa informa 2017 [Identi D tion in tion in tion in 2:25 PM fier] source source source in data data data Unspeci fied specime n by Probe & target amplifi cation method Vibrio NOT NOT No No No Sep 20 sp DETECTE DETECTE informa informa informa 2017 identif D tion in tion in tion in 2:25 PM ied in source source source Stool data data data by Organis m specifi c culture CBC W Auto Differential panel in Blood Observa Value Referen Units Interpr Notes Date tion ce etation Range Basophils 0 - 0.2 K/MM3 Normal No Sep 20 informati 2017 6:00 [#/volume on in AM ] in source Blood by data Automated count Basophils 0.1 - 2.0 % Normal No Sep 20 / informati 2017 6:00 leukocyte on in AM s in source Blood by data Automated count Eosinophi 0.0 - 0.4 K/mm3 High No Sep 20 ls informati 2017 6:00 [#/volume on in AM ] in source Blood by data Automated count Eosinophi 0.1 - % Normal No Sep 20 ls/100 12.0 informati 2016 6:00 leukocyte on in AM s in source Blood by data Automated count Granulocy 1.3 - 8.0 K/mm3 Normal No Sep 20 narendra informati 2016 6:00 [#/volume on in AM ] in source Blood by data Automated count Granulocy 37.0 - % Normal No Sep 20 narendra/100 80.0 informati 2017 6:00 leukocyte on in AM s in source Blood by data Automated count Hematocri 42.0 - % Normal No Sep 20 t [Volume 52.0 informati 2017 6:00 on in AM Fraction] source of Blood data Hemoglobi 14.1 - g/dL No No Sep 20 n 18.0 informati informati 2017 6:00 [Mass/vol on in on in AM ume] in source source Blood data data Lymphocyt 0.7 - 4.5 K/mm3 Normal No Sep 20 es informati 2017 6:00 [#/volume on in AM ] in source Unspecifi data ed specimen by Automated count Lymphocyt 10 - 50 % Normal No Sep 20 es informati 2017 6:00 [#/volume on in AM ] in source Unspecifi data ed specimen by Automated count Erythrocy 27 - 31.2 pg High No Sep 20 te mean informati 2017 6:00 corpuscul on in AM ar source hemoglobi data n [Entitic mass] Erythrocy 31.8 - g/dl Normal No Sep 20 te mean 35.4 informati 2017 6:00 corpuscul on in AM ar source hemoglobi data n concentra tion [Mass/vol ume] by Automated count Erythrocy 82.2 - fl Normal No Sep 20 te mean 97.8 informati 2016 6:00 corpuscul on in AM ar volume source [Entitic data volume] by Automated count Monocytes 0.1 - 1.0 K/mm3 Normal No Sep 20 informati 2016 6:00 [#/volume on in AM ] in source Blood by data Automated count Monocytes 1.7 - 9.3 % Normal No Sep 20 /100 informati 2017 6:00 leukocyte on in AM s in source Blood by data Automated count Platelet 7.4 - fl Normal No Sep 20 mean 10.4 informati 2017 6:00 volume on in AM [Entitic source volume] data in Blood by Automated count Platelets 142 - 424 K/mm3 No No Sep 20 informati informati 2017 6:00 [#/volume on in on in AM ] in source source Blood data data Erythrocy 4.6 - 6.2 M/mm3 Low No Sep 20 narendra informati 2017 6:00 [#/volume on in AM ] in source Amniotic data fluid Erythrocy 11.5 - % Normal No Sep 20 te 17.5 informati 2017 6:00 distribut on in AM ion width source [Entitic data volume] by Automated count Leukocyte 4.8 - K/MM3 Normal No Sep 20 s 10.8 informati 2017 6:00 [#/volume on in AM ] in source Blood data Basic metabolic panel in Blood Observa Value Referen Units Interpr Notes Date tion ce etation Range Urea 7 - 18 mg/dL Normal No Sep 20 nitrogen informati 2017 6:00 [Mass/vol on in AM ume] in source Serum or data Plasma Calcium 8.5 - mg/dL Low No Sep 20 [Mass/vol 10.1 informati 2017 6:00 ume] in on in AM Serum or source Plasma data Chloride 98 - 107 mmoL/L High No Sep 20 [Moles/vo informati 2017 6:00 lume] in on in AM Serum or source Plasma data Carbon 21.0 - mmoL/L Normal No Sep 20 dioxide, 32.0 informati 2017 6:00 total on in AM [Moles/vo source lume] in data Serum or Plasma Creatinin 0.70 - mg/dL Normal No Sep 20 e 1.30 informati 2017 6:00 [Mass/vol on in AM ume] in source Serum or data Plasma Creatinin 50 - 200 ML/MIN Normal No Sep 20 e renal informati 2017 6:00 clearance on in AM source predicted data by Cockcroft -Gault formula Estimated >60 ML/MIN No REFERENCE Sep 20 informati RANGE: 2017 6:00 glomerula on in >60 AM r source ML/MIN/1. filtratio data 73 SQUARE n rate METERSIf (GF this patient is -A merican, then multiply theresult by 1.210. Glucose 74 - 106 mg/dL High No Sep 20 [Mass/vol informati 2016 6:00 ume] in on in AM Serum or source Plasma data Potassium 3.5 - 5.1 mmoL/L Normal No Sep 20 informati 2016 6:00 [Moles/vo on in AM lume] in source Serum or data Plasma Sodium 136 - 145 mmoL/L Normal No Sep 20 [Moles/vo informati 2016 6:00 lume] in on in AM Serum or source Plasma data Amylase [Enzymatic activity/volume] in Serum or Plasma Observa Value Referen Units Interpr Notes Date tion ce etation Range Amylase 25 - 115 U/L Normal No Sep 20 [Enzymati informati 2016 6:00 c on in AM activity/ source volume] data in Serum or Plasma Lipase [Enzymatic activity/volume] in Serum or Plasma Observa Value Referen Units Interpr Notes Date tion ce etation Range Lipase 73 - 393 U/L Normal No Sep 20 [Enzymati informati 2016 6:00 c on in AM activity/ source volume] data in Serum or Plasma Drugs identified in Urine by Screen method Observa Value Referen Units Interpr Notes Date tion ce etation Range Positive urine drug screen samples are stored for 7 days. Contact the Lab if confirmation of positives is needed. Ampheta NEGATIV <1000 ng/mL No No Sep 19 mine E informa informa 2016 [Presen tion in tion in 1:40 PM ce] in source source Urine data data by Screen method Barbitura <200 ng/mL No No Sep 19 narendra informati informati 2017 1:40 [Mass/vol on in on in PM ume] in source source Urine by data data Screen method Benzodiaz 200 ng/mL ng/mL No No Sep 19 epines informati informati 2017 1:40 [Mass/vol on in on in PM ume] in source source Serum or data data Plasma by Screen method Cocaine <300 ng/g No No Sep 19 [Mass/vol informati informati 2017 1:40 ume] in on in on in PM Unspecifi source source ed data data specimen Methadone <300 ng/mL No No Sep 19 informati informati 2017 1:40 [Mass/vol on in on in PM ume] in source source Unspecifi data data ed specimen Opiates <300 ng/mL No No Sep 19 [Mass/vol informati informati 2017 1:40 ume] in on in on in PM Unspecifi source source ed data data specimen Phencycli <25 ng/mL No No Sep 19 dine informati informati 2017 1:40 [Mass/vol on in on in PM ume] in source source Unspecifi data data ed specimen 11-Hydr NEGATIV <50 ng/mL No No Sep 19 oxy E informa informa 2017 delta-9 tion in tion in 1:40 PM source source tetrahy data data drocann abinol [Presen ce] in Unspeci fied specime n Urinalysis dipstick W Reflex Microscopic panel in Urine Observa Value Referen Units Interpr Notes Date tion ce etation Range Appeara CLEAR CLEAR No No No Sep 19 nce of informa informa informa 2017 Urine tion in tion in tion in 1:40 PM source source source data data data Bacteri 1+ O No No No Sep 19 a informa informa informa 2016 [Presen tion in tion in tion in 1:40 PM ce] in source source source Urine data data data sedimen t by Light microsc opy Bilirub 1+ NEG No Abnorma BILIRUB Sep 19 in informa l IN 2017 [Presen tion in CONFIRM 1:40 PM ce] in source ED WITH Urine data by Test ICTOTES strip TICTOTE ST NEGATIV E Erythro TRACE-I NEG No No No Sep 19 cytes NTACT informa informa informa 2016 [Presen tion in tion in tion in 1:40 PM ce] in source source source Urine data data data Color YELLOW YELLOW No No No Sep 19 of informa informa informa 2017 Urine tion in tion in tion in 1:40 PM source source source data data data Glucose NEG No No No Sep 19 [Mass/vol informati informati informati 2017 1:40 ume] in on in on in on in PM Urine by source source source Test data data data strip Ketones NEGATIV NEG mg/dL No No Sep 19 E informa informa 2017 [Presen tion in tion in 1:40 PM ce] in source source Urine data data by Automat ed test strip Mucus NEGATIV NEG No No No Sep 19 [Presen E informa informa informa 2017 ce] in tion in tion in tion in 1:40 PM Urine source source source sedimen data data data t by Light microsc opy Mucus OCC NONE No No No Sep 19 [Presen informa informa informa 2016 ce] in tion in tion in tion in 1:40 PM Urine source source source sedimen data data data t by Light microsc opy Nitrite NEGATIV NEG No No No Sep E informa informa informa 2016 [Presen tion in tion in tion in 1:40 PM ce] in source source source Urine data data data by Test strip pH of 5.0 - 8.5 No Normal No Sep 19 Urine informati informati 2017 1:40 on in on in PM source source data data Protein NEG mg/dL No No Sep 19 [Mass/vol informati informati 2017 1:40 ume] in on in on in PM Urine by source source Automated data data test strip Erythro 3-5 0 rbc/hpf No No Sep 19 cytes informa informa 2016 [Presen tion in tion in 1:40 PM ce] in source source Urine data data sedimen t by Light microsc opy Specific 1.005 - No Normal No Sep 19 gravity 1.030 informati informati 2017 1:40 of Urine on in on in PM source source data data Epithel OCC OCC #/hpf No No Sep 19 ial informa informa 2017 cells.s tion in tion in 1:40 PM quamous source source data data [Presen ce] in Urine sedimen t by Microsc opy high power field Urobili 0.2 NEG E.U./dL No No Sep 19 nogen informa informa 2017 [Presen tion in tion in 1:40 PM ce] in source source Urine data data by Test strip Leukocyte O wbc/hpf No No Sep 19 s informati informati 2017 1:40 [#/volume on in on in PM ] in source source Urine data data Urinalysis dipstick W Reflex Microscopic panel in Urine Observa Value Referen Units Interpr Notes Date tion ce etation Range Appeara CLEAR CLEAR No No No Sep 19 nce of informa informa informa 2017 Urine tion in tion in tion in 1:40 PM source source source data data data Bilirub 1+ NEG No Abnorma BILIRUB Sep 19 in informa l IN 2017 [Presen tion in CONFIRM 1:40 PM ce] in source ED WITH Urine data by Test ICTOTES strip TICTOTE ST NEGATIV E Erythro TRACE-I NEG No No No Sep cytes NTACT informa informa informa 2016 [Presen tion in tion in tion in 1:40 PM ce] in source source source Urine data data data Color YELLOW YELLOW No No No Sep of informa informa informa 2017 Urine tion in tion in tion in 1:40 PM source source source data data data Glucose NEG No No No Sep [Mass/vol informati informati informati 2017 1:40 ume] in on in on in on in PM Urine by source source source Test data data data strip Ketones NEGATIV NEG mg/dL No No Dec 31 E informa informa 2016 [Presen tion in tion in 1:40 PM ce] in source source Urine data data by Automat ed test strip Mucus NEGATIV NEG No No No Dec 31 [Presen E informa informa informa 2016 ce] in tion in tion in tion in 1:40 PM Urine source source source sedimen data data data t by Light microsc opy Nitrite NEGATIV NEG No No No Sep E informa informa informa 2016 [Presen tion in tion in tion in 1:40 PM ce] in source source source Urine data data data by Test strip pH of 5.0 - 8.5 No Normal No Sep Urine informati informati 2017 1:40 on in on in PM source source data data Protein NEG mg/dL No No Sep [Mass/vol informati informati 2017 1:40 ume] in on in on in PM Urine by source source Automated data data test strip Specific 1.005 - No Normal No Sep 19 gravity 1.030 informati informati 2017 1:40 of Urine on in on in PM source source data data Urobili 0.2 NEG E.U./dL No No Sep nogen informa informa 2016 [Presen tion in tion in 1:40 PM ce] in source source Urine data data by Test strip Cancer Ag 19-9 [Units/volume] in Serum or Plasma Observa Value Referen Units Interpr Notes Date tion ce etation Range Cancer Ag 0 - 35 U/mL No Denise Sep 19 19-9 informati ECLIA 2017 1:21 [Units/vo on in methodolo PM lume] in source gyPerform Serum or data ed at: [facility] [place] [address] [address] [place], [place] [id number] Camp Attendant: Dustin Morrell PhD, Phone: [phone] CBC W Auto Differential panel in Blood Observa Value Referen Units Interpr Notes Date tion ce etation Range Basophils 0 - 0.2 K/MM3 Normal No Sep 19 informati 2017 1:21 [#/volume on in PM ] in source Blood by data Automated count Basophils 0.1 - 2.0 % Normal No Sep 19 /100 informati 2017 1:21 leukocyte on in PM s in source Blood by data Automated count Eosinophi 0.0 - 0.4 K/mm3 Normal No Sep 19 ls informati 2017 1:21 [#/volume on in PM ] in source Blood by data Automated count Eosinophi 0.1 - % Normal No Sep 19 ls/100 12.0 informati 2017 1:21 leukocyte on in PM s in source Blood by data Automated count Granulocy 1.3 - 8.0 K/mm3 High No Sep 19 narendra informati 2017 1:21 [#/volume on in PM ] in source Blood by data Automated count Granulocy 37.0 - % Normal No Sep 19 narendra/100 80.0 informati 2017 1:21 leukocyte on in PM s in source Blood by data Automated count Hematocri 42.0 - % High No Sep 19 t [Volume 52.0 informati 2017 1:21 on in PM Fraction] source of Blood data Hemoglobi 14.1 - g/dL High No Sep 19 n 18.0 alert informati 2017 1:21 [Mass/vol on in PM ume] in source Blood data Lymphocyt 0.7 - 4.5 K/mm3 Normal No Sep 19 es informati 2017 1:21 [#/volume on in PM ] in source Unspecifi data ed specimen by Automated count Lymphocyt 10 - 50 % Normal No Sep 19 es informati 2017 1:21 [#/volume on in PM ] in source Unspecifi data ed specimen by Automated count Erythrocy 27 - 31.2 pg High No Sep 19 te mean informati 2016 1:21 corpuscul on in PM ar source hemoglobi data n [Entitic mass] Erythrocy 31.8 - g/dl Normal No Sep 19 te mean 35.4 informati 2016 1:21 corpuscul on in PM ar source hemoglobi data n concentra tion [Mass/vol ume] by Automated count Erythrocy 82.2 - fl Normal No Sep 19 te mean 97.8 informati 2016 1:21 corpuscul on in PM ar volume source [Entitic data volume] by Automated count Monocytes 0.1 - 1.0 K/mm3 Normal No Sep 19 informati 2016 1:21 [#/volume on in PM ] in source Blood by data Automated count Monocytes 1.7 - 9.3 % Normal No Sep 19 /100 informati 2016 1:21 leukocyte on in PM s in source Blood by data Automated count Platelet 7.4 - fl Normal No Sep 19 mean 10.4 informati 2016 1:21 volume on in PM [Entitic source volume] data in Blood by Automated count Platelets 142 - 424 K/mm3 Normal No Sep 19 informati 2016 1:21 [#/volume on in PM ] in source Blood data Erythrocy 4.6 - 6.2 M/mm3 Normal No Sep 19 narendra informati 2016 1:21 [#/volume on in PM ] in source Amniotic data fluid Erythrocy 11.5 - % Normal No Sep 19 te 17.5 informati 2016 1:21 distribut on in PM ion width source [Entitic data volume] by Automated count Leukocyte 4.8 - K/MM3 High No Sep 19 s 10.8 informati 2016 1:21 [#/volume on in PM ] in source Blood data Amylase [Enzymatic activity/volume] in Serum or Plasma Observa Value Referen Units Interpr Notes Date tion ce etation Range Amylase 25 - 115 U/L Normal No Sep 19 [Enzymati informati 2016 1:21 c on in PM activity/ source volume] data in Serum or Plasma Comprehensive metabolic 2000 panel in Serum or Plasma Observa Value Referen Units Interpr Notes Date tion ce etation Range Albumin/G 1.1 - 1.8 No Normal No Sep 19 lobulin informati informati 2016 1:21 [Mass on in on in PM ratio] in source source Serum or data data Plasma Albumin 3.4 - 5.0 gm/dL No No Sep 19 [Mass/vol informati informati 2016 1:21 ume] in on in on in PM Serum or source source Plasma data data Alkaline 46 - 116 U/L High No Sep 19 phosphata informati 2017 1:21 se on in PM [Enzymati source c data activity/ volume] in Serum or Plasma Bilirubin 0.2 - 1.0 mg/dL Normal No Sep 19 .total informati 2017 1:21 [Mass/vol on in PM ume] in source Serum or data Plasma Urea 7 - 18 mg/dL Normal No Sep 19 nitrogen informati 2017 1:21 [Mass/vol on in PM ume] in source Serum or data Plasma Calcium 8.5 - mg/dL Normal No Sep 19 [Mass/vol 10.1 informati 2017 1:21 ume] in on in PM Serum or source Plasma data Chloride 98 - 107 mmoL/L Normal No Sep 19 [Moles/vo informati 2017 1:21 lume] in on in PM Serum or source Plasma data Carbon 21.0 - mmoL/L Normal No Sep 19 dioxide, 32.0 informati 2017 1:21 total on in PM [Moles/vo source lume] in data Serum or Plasma Creatinin 0.70 - mg/dL Normal No Sep 19 e 1.30 informati 2017 1:21 [Mass/vol on in PM ume] in source Serum or data Plasma Creatinin 50 - 200 ML/MIN Normal No Sep 19 e renal informati 2017 1:21 clearance on in PM source predicted data by Cockcroft -Gault formula Estimated >60 ML/MIN No REFERENCE Sep 19 informati RANGE: 2017 1:21 glomerula on in >60 PM r source ML/MIN/1. filtratio data 73 SQUARE n rate METERSIf (GF this patient is -A merican, then multiply theresult by 1.210. Globulin 1.3 - 3.2 gm/dL High No Sep 19 [Mass/vol informati 2017 1:21 ume] in on in PM Serum source data Glucose 74 - 106 mg/dL High No Sep 19 [Mass/vol informati 2017 1:21 ume] in on in PM Serum or source Plasma data Potassium 3.5 - 5.1 mmoL/L Normal No Sep 19 informati 2017 1:21 [Moles/vo on in PM lume] in source Serum or data Plasma Sodium 136 - 145 mmoL/L Normal No Sep 19 [Moles/vo informati 2017 1:21 lume] in on in PM Serum or source Plasma data Aspartate 15 - 37 U/L Normal No Sep 19 informati 2017 1:21 aminotran on in PM sferase source [Enzymati data c activity/ volume] in Serum or Plasma Alanine 12 - 78 U/L Normal No Sep 19 aminotran inform2016 1:21 sferase on in PM [Enzymati source c data activity/ volume] in Serum or Plasma Protein 6.4 - 8.2 gm/dL Normal No Sep 19 [Mass/vol informati 2016 1:21 ume] in on in PM Serum or source Plasma data Lipase [Enzymatic activity/volume] in Serum or Plasma Observa Value Referen Units Interpr Notes Date tion ce etation Range Lipase 73 - 393 U/L Normal No Sep 19 [Enzymati informati 2016 1:21 c on in PM activity/ source volume] data in Serum or Plasma CBC W Auto Differential panel in Blood Observa Value Referen Units Interpr Notes Date tion ce etation Range Basophils 0 - 0.2 K/MM3 Normal No Sep 16 inform2016 9:41 [#/volume on in PM ] in source Blood by data Automated count Basophils 0.1 - 2.0 % Normal No Sep 16 /100 informati 2017 9:41 leukocyte on in PM s in source Blood by data Automated count Eosinophi 0.0 - 0.4 K/mm3 Normal No Sep 16 ls informati 2016 9:41 [#/volume on in PM ] in source Blood by data Automated count Eosinophi 0.1 - % Normal No Sep 16 ls/100 12.0 informati 2016 9:41 leukocyte on in PM s in source Blood by data Automated count Granulocy 1.3 - 8.0 K/mm3 Normal No Sep 16 narendra informati 2016 9:41 [#/volume on in PM ] in source Blood by data Automated count Granulocy 37.0 - % Normal No Sep 16 narendra/100 80.0 informati 2016 9:41 leukocyte on in PM s in source Blood by data Automated count Hematocri 42.0 - % Normal No Sep 16 t [Volume 52.0 informati 2016 9:41 on in PM Fraction] source of Blood data Hemoglobi 14.1 - g/dL Normal No Sep 16 n 18.0 informati 2016 9:41 [Mass/vol on in PM ume] in source Blood data Lymphocyt 0.7 - 4.5 K/mm3 Normal No Sep 16 es informati 2017 9:41 [#/volume on in PM ] in source Unspecifi data ed specimen by Automated count Lymphocyt 10 - 50 % Normal No Sep 16 es informati 2017 9:41 [#/volume on in PM ] in source Unspecifi data ed specimen by Automated count Erythrocy 27 - 31.2 pg High No Sep 16 te mean informati 2017 9:41 corpuscul on in PM ar source hemoglobi data n [Entitic mass] Erythrocy 31.8 - g/dl Normal No Sep 16 te mean 35.4 informati 2017 9:41 corpuscul on in PM ar source hemoglobi data n concentra tion [Mass/vol ume] by Automated count Erythrocy 82.2 - fl Normal No Sep 16 te mean 97.8 informati 2017 9:41 corpuscul on in PM ar volume source [Entitic data volume] by Automated count Monocytes 0.1 - 1.0 K/mm3 Normal No Sep 16 informati 2017 9:41 [#/volume on in PM ] in source Blood by data Automated count Monocytes 1.7 - 9.3 % Normal No Sep 16 /100 informati 2017 9:41 leukocyte on in PM s in source Blood by data Automated count Platelet 7.4 - fl Normal No Sep 16 mean 10.4 informati 2017 9:41 volume on in PM [Entitic source volume] data in Blood by Automated count Platelets 142 - 424 K/mm3 No No Sep 16 informati informati 2017 9:41 [#/volume on in on in PM ] in source source Blood data data Erythrocy 4.6 - 6.2 M/mm3 Normal No Sep 16 narendra informati 2017 9:41 [#/volume on in PM ] in source Amniotic data fluid Erythrocy 11.5 - % Normal No Sep 16 te 17.5 informati 2017 9:41 distribut on in PM ion width source [Entitic data volume] by Automated count Leukocyte 4.8 - K/MM3 High No Sep 16 s 10.8 informati 2017 9:41 [#/volume on in PM ] in source Blood data Comprehensive metabolic 2000 panel in Serum or Plasma Observa Value Referen Units Interpr Notes Date tion ce etation Range Albumin/G 1.1 - 1.8 No Normal No Sep 16 lobulin informati informati 2017 9:41 [Mass on in on in PM ratio] in source source Serum or data data Plasma Albumin 3.4 - 5.0 gm/dL Normal No Sep 16 [Mass/vol informati 2017 9:41 ume] in on in PM Serum or source Plasma data Alkaline 46 - 116 U/L High No Sep 16 phosphata informati 2017 9:41 se on in PM [Enzymati source c data activity/ volume] in Serum or Plasma Bilirubin 0.2 - 1.0 mg/dL Normal No Sep 16 .total informati 2017 9:41 [Mass/vol on in PM ume] in source Serum or data Plasma Urea 7 - 18 mg/dL Normal No Sep 16 nitrogen informati 2017 9:41 [Mass/vol on in PM ume] in source Serum or data Plasma Calcium 8.5 - mg/dL Normal No Sep 16 [Mass/vol 10.1 informati 2017 9:41 ume] in on in PM Serum or source Plasma data Chloride 98 - 107 mmoL/L Normal No Sep 16 [Moles/vo informati 2017 9:41 lume] in on in PM Serum or source Plasma data Carbon 21.0 - mmoL/L Normal No Sep 16 dioxide, 32.0 informati 2017 9:41 total on in PM [Moles/vo source lume] in data Serum or Plasma Creatinin 0.70 - mg/dL Normal No Sep 16 e 1.30 informati 2017 9:41 [Mass/vol on in PM ume] in source Serum or data Plasma Creatinin 50 - 200 ML/MIN Normal No Sep 16 e renal informati 2017 9:41 clearance on in PM source predicted data by Cockcroft -Gault formula Estimated >60 ML/MIN No REFERENCE Sep 16 informati RANGE: 2017 9:41 glomerula on in >60 PM r source ML/MIN/1. filtratio data 73 SQUARE n rate METERSIf (GF this patient is -A merican, then multiply theresult by 1.210. Globulin 1.3 - 3.2 gm/dL High No Sep 16 [Mass/vol informati 2017 9:41 ume] in on in PM Serum source data Glucose 74 - 106 mg/dL High No Sep 16 [Mass/vol informati 2016 9:41 ume] in on in PM Serum or source Plasma data Potassium 3.5 - 5.1 mmoL/L Normal POTASSIUM Sep 16 August 9:41 [Moles/vo FALSELY PM lume] in ELEVATED Serum or DUE TO Plasma SLIGHTHEM OLYSIS/LI PEMIA Sodium 136 - 145 mmoL/L Normal No Dec 16 [Moles/vo informati 2016 9:41 lume] in on in PM Serum or source Plasma data Aspartate 15 - 37 U/L Normal AST AugustDec 282016 9:41 aminotran FALSELY PM sferase ELEVATED [Enzymati DUE TO c SLIGHT activity/ HEMOLYSIS volume] /LIPEMIA in Serum or Plasma Alanine 12 - 78 U/L Normal No Dec 16 aminotran informati 2016 9:41 sferase on in PM [Enzymati source c data activity/ volume] in Serum or Plasma Protein 6.4 - 8.2 gm/dL Normal Dec 28 [Mass/vol informati 2016 9:41 ume] in on in PM Serum or source Plasma data Amylase [Enzymatic activity/volume] in Serum or Plasma Observa Value Referen Units Interpr Notes Date tion ce etation Range Amylase 25 - 115 U/L Normal Dec 28 [Enzymati informati 2016 9:41 c on in PM activity/ source volume] data in Serum or Plasma Lipase [Enzymatic activity/volume] in Serum or Plasma Observa Value Referen Units Interpr Notes Date tion ce etation Range Lipase 73 - 393 U/L Normal Dec 28 [Enzymati informati 2016 9:41 c on in PM activity/ source volume] data in Serum or Plasma Urinalysis dipstick W Reflex Microscopic panel in Urine Observa Value Referen Units Interpr Notes Date tion ce etation Range Appeara CLEAR CLEAR No No No Dec 16 nce of informa informa informa 2016 Urine tion in tion in tion in 9:30 PM source source source data data data Bacteri 1+ O No No No Dec 16 a informa informa informa 2016 [Presen tion in tion in tion in 9:30 PM ce] in source source source Urine data data data sedimen t by Light microsc opy Bilirub NEGATIV NEG No No No Dec 16 in E informa informa informa 2016 [Presen tion in tion in tion in 9:30 PM ce] in source source source Urine data data data by Test strip Erythro NEGATIV NEG No No No Dec 16 cytes E informa informa informa 2017 [Presen tion in tion in tion in 9:30 PM ce] in source source source Urine data data data Color YELLOW YELLOW No No No Sep 16 of informa informa informa 2017 Urine tion in tion in tion in 9:30 PM source source source data data data Glucose NEG No No No Sep 16 [Mass/vol informati informati informati 2017 9:30 ume] in on in on in on in PM Urine by source source source Test data data data strip Ketones NEGATIV NEG mg/dL No No Sep 16 E informa informa 2017 [Presen tion in tion in 9:30 PM ce] in source source Urine data data by Automat ed test strip Mucus NEGATIV NEG No No No Sep 16 [Presen E informa informa informa 2016 ce] in tion in tion in tion in 9:30 PM Urine source source source sedimen data data data t by Light microsc opy Mucus 2+ NONE No No No Sep 16 [Presen informa informa informa 2016 ce] in tion in tion in tion in 9:30 PM Urine source source source sedimen data data data t by Light microsc opy Nitrite NEGATIV NEG No No No Sep 16 E informa informa informa 2016 [Presen tion in tion in tion in 9:30 PM ce] in source source source Urine data data data by Test strip pH of 5.0 - 8.5 No Normal No Sep 16 Urine informati informati 2017 9:30 on in on in PM source source data data Protein NEG mg/dL No No Sep 16 [Mass/vol informati informati 2017 9:30 ume] in on in on in PM Urine by source source Automated data data test strip Erythro 3-5 0 rbc/hpf No No Sep 16 cytes informa informa 2017 [Presen tion in tion in 9:30 PM ce] in source source Urine data data sedimen t by Light microsc opy Specific 1.005 - No Normal No Sep 16 gravity 1.030 informati informati 2017 9:30 of Urine on in on in PM source source data data Epithel 3-5 OCC #/hpf No No Sep 16 ial informa informa 2017 cells.s tion in tion in 9:30 PM quamous source source data data [Presen ce] in Urine sedimen t by Microsc opy high power field Urobili 0.2 NEG E.U./dL No No Sep 16 nogen informa informa 2017 [Presen tion in tion in 9:30 PM ce] in source source Urine data data by Test strip Leukocyte O wbc/hpf No No Sep 16 s informati informati 2017 9:30 [#/volume on in on in PM ] in source source Urine data data Drugs identified in Urine by Screen method Observa Value Referen Units Interpr Notes Date tion ce etation Range Positive urine drug screen samples are stored for 7 days. Contact the Lab if confirmation of positives is needed. Ampheta NEGATIV <1000 ng/mL No No Sep 16 mine E informa informa 2017 [Presen tion in tion in 9:30 PM ce] in source source Urine data data by Screen method Barbitura <200 ng/mL No No Sep 16 narendra informati informati 2017 9:30 [Mass/vol on in on in PM ume] in source source Urine by data data Screen method Benzodiaz 200 ng/mL ng/mL No No Sep 16 epines informati informati 2017 9:30 [Mass/vol on in on in PM ume] in source source Serum or data data Plasma by Screen method Cocaine <300 ng/g No No Sep 16 [Mass/vol informati informati 2017 9:30 ume] in on in on in PM Unspecifi source source ed data data specimen Methadone <300 ng/mL No No Sep 16 informati informati 2017 9:30 [Mass/vol on in on in PM ume] in source source Unspecifi data data ed specimen Opiates <300 ng/mL No No Sep 16 [Mass/vol informati informati 2017 9:30 ume] in on in on in PM Unspecifi source source ed data data specimen Phencycli <25 ng/mL No No Sep 16 dine informati informati 2017 9:30 [Mass/vol on in on in PM ume] in source source Unspecifi data data ed specimen 11-Hydr NEGATIV <50 ng/mL No No Sep 16 oxy E informa informa 2017 delta-9 tion in tion in 9:30 PM source source tetrahy data data drocann abinol [Presen ce] in Unspeci fied specime n Urinalysis dipstick W Reflex Microscopic panel in Urine Observa Value Referen Units Interpr Notes Date tion ce etation Range Appeara CLEAR CLEAR No No No Sep 16 nce of informa informa informa 2017 Urine tion in tion in tion in 9:30 PM source source source data data data Bilirub NEGATIV NEG No No No Sep 16 in E informa informa informa 2017 [Presen tion in tion in tion in 9:30 PM ce] in source source source Urine data data data by Test strip Erythro NEGATIV NEG No No No Sep 16 cytes E informa informa informa 2017 [Presen tion in tion in tion in 9:30 PM ce] in source source source Urine data data data Color YELLOW YELLOW No No No Sep 16 of informa informa informa 2017 Urine tion in tion in tion in 9:30 PM source source source data data data Glucose NEG No No No Sep 16 [Mass/vol informati informati informati 2017 9:30 ume] in on in on in on in PM Urine by source source source Test data data data strip Ketones NEGATIV NEG mg/dL No No Sep 16 E informa informa 2016 [Presen tion in tion in 9:30 PM ce] in source source Urine data data by Automat ed test strip Mucus NEGATIV NEG No No No Sep 16 [Presen E informa informa informa 2016 ce] in tion in tion in tion in 9:30 PM Urine source source source sedimen data data data t by Light microsc opy Nitrite NEGATIV NEG No No No Sep 16 E informa informa informa 2016 [Presen tion in tion in tion in 9:30 PM ce] in source source source Urine data data data by Test strip pH of 5.0 - 8.5 No Normal No Sep 16 Urine informati informati 2017 9:30 on in on in PM source source data data Protein NEG mg/dL No No Sep 16 [Mass/vol informati informati 2017 9:30 ume] in on in on in PM Urine by source source Automated data data test strip Specific 1.005 - No Normal No Sep 16 gravity 1.030 informati informati 2017 9:30 of Urine on in on in PM source source data data Urobili 0.2 NEG E.U./dL No No Sep 16 nogen informa informa 2017 [Presen tion in tion in 9:30 PM ce] in source source Urine data data by Test strip Amylase [Enzymatic activity/volume] in Serum or Plasma Observa Value Referen Units Interpr Notes Date tion ce etation Range Amylase 25 - 115 U/L Normal No Sep 11 [Enzymati informati 2017 9:40 c on in PM activity/ source volume] data in Serum or Plasma Comprehensive metabolic 2000 panel in Serum or Plasma Observa Value Referen Units Interpr Notes Date tion ce etation Range Albumin/G 1.1 - 1.8 No Normal No Sep 11 lobulin informati informati 2017 9:40 [Mass on in on in PM ratio] in source source Serum or data data Plasma Albumin 3.4 - 5.0 gm/dL Normal No Sep 11 [Mass/vol informati 2017 9:40 ume] in on in PM Serum or source Plasma data Alkaline 46 - 116 U/L High No Sep 11 phosphata informati 2017 9:40 se on in PM [Enzymati source c data activity/ volume] in Serum or Plasma Bilirubin 0.2 - 1.0 mg/dL Normal No Sep 11 .total informati 2017 9:40 [Mass/vol on in PM ume] in source Serum or data Plasma Urea 7 - 18 mg/dL Normal No Sep 11 nitrogen informati 2017 9:40 [Mass/vol on in PM ume] in source Serum or data Plasma Calcium 8.5 - mg/dL Normal No Sep 11 [Mass/vol 10.1 informati 2017 9:40 ume] in on in PM Serum or source Plasma data Chloride 98 - 107 mmoL/L Normal No Sep 11 [Moles/vo informati 2017 9:40 lume] in on in PM Serum or source Plasma data Carbon 21.0 - mmoL/L Normal No Sep 11 dioxide, 32.0 informati 2017 9:40 total on in PM [Moles/vo source lume] in data Serum or Plasma Creatinin 0.70 - mg/dL Normal No Sep 11 e 1.30 informati 2017 9:40 [Mass/vol on in PM ume] in source Serum or data Plasma Creatinin 50 - 200 ML/MIN Normal No Sep 11 e renal informati 2017 9:40 clearance on in PM source predicted data by Cockcroft -Gault formula Estimated >60 ML/MIN No REFERENCE Sep 11 informati RANGE: 2017 9:40 glomerula on in >60 PM r source ML/MIN/1. filtratio data 73 SQUARE n rate METERSIf (GF this patient is -A merican, then multiply theresult by 1.210. Globulin 1.3 - 3.2 gm/dL High No Sep 11 [Mass/vol informati 2016 9:40 ume] in on in PM Serum source data Glucose 74 - 106 mg/dL High No Sep 11 [Mass/vol informati 2016 9:40 ume] in on in PM Serum or source Plasma data Potassium 3.5 - 5.1 mmoL/L Normal No Sep 11 inform2016 9:40 [Moles/vo on in PM lume] in source Serum or data Plasma Sodium 136 - 145 mmoL/L Normal No Sep 11 [Moles/vo informati 2016 9:40 lume] in on in PM Serum or source Plasma data Aspartate 15 - 37 U/L High No Sep 11 inform2016 9:40 aminotran on in PM sferase source [Enzymati data c activity/ volume] in Serum or Plasma Alanine 12 - 78 U/L High No Sep 11 aminotran informati 2016 9:40 sferase on in PM [Enzymati source c data activity/ volume] in Serum or Plasma Protein 6.4 - 8.2 gm/dL Normal No Sep 11 [Mass/vol informati 2016 9:40 ume] in on in PM Serum or source Plasma data Lipase [Enzymatic activity/volume] in Serum or Plasma Observa Value Referen Units Interpr Notes Date tion ce etation Range Lipase 73 - 393 U/L Normal No Sep 11 [Enzymati informati 2017 9:40 c on in PM activity/ source volume] data in Serum or Plasma CBC W Auto Differential panel in Blood Observa Value Referen Units Interpr Notes Date tion ce etation Range Basophils 0 - 0.2 K/MM3 Normal No Sep 11 2016 9:40 [#/volume on in PM ] in source Blood by data Automated count Basophils 0.1 - 2.0 % Normal No Sep 11 / informati 2016 9:40 leukocyte on in PM s in source Blood by data Automated count Eosinophi 0.0 - 0.4 K/mm3 Normal No Sep 11 ls ati 2016 9:40 [#/volume on in PM ] in source Blood by data Automated count Eosinophi 0.1 - % Normal No Sep 11 ls/100 12.0 informati 2017 9:40 leukocyte on in PM s in source Blood by data Automated count Granulocy 1.3 - 8.0 K/mm3 High No Sep 11 narendra informati 2017 9:40 [#/volume on in PM ] in source Blood by data Automated count Granulocy 37.0 - % Normal No Sep 11 narendra/100 80.0 informati 2017 9:40 leukocyte on in PM s in source Blood by data Automated count Hematocri 42.0 - % Normal No Sep 11 t [Volume 52.0 informati 2016 9:40 on in PM Fraction] source of Blood data Hemoglobi 14.1 - g/dL Normal No Sep 11 n 18.0 informati 2017 9:40 [Mass/vol on in PM ume] in source Blood data Lymphocyt 0.7 - 4.5 K/mm3 Normal No Sep 11 es informati 2017 9:40 [#/volume on in PM ] in source Unspecifi data ed specimen by Automated count Lymphocyt 10 - 50 % Normal No Sep 11 es informati 2016 9:40 [#/volume on in PM ] in source Unspecifi data ed specimen by Automated count Erythrocy 27 - 31.2 pg High No Sep 11 te mean informati 2017 9:40 corpuscul on in PM ar source hemoglobi data n [Entitic mass] Erythrocy 31.8 - g/dl Normal No Sep 11 te mean 35.4 informati 2016 9:40 corpuscul on in PM ar source hemoglobi data n concentra tion [Mass/vol ume] by Automated count Erythrocy 82.2 - fl High No Sep 11 te mean 97.8 informati 2017 9:40 corpuscul on in PM ar volume source [Entitic data volume] by Automated count Monocytes 0.1 - 1.0 K/mm3 Normal No Sep 11 informati 2016 9:40 [#/volume on in PM ] in source Blood by data Automated count Monocytes 1.7 - 9.3 % Normal No Sep 11 /100 informati 2017 9:40 leukocyte on in PM s in source Blood by data Automated count Platelet 7.4 - fl Normal No Sep 11 mean 10.4 informati 2016 9:40 volume on in PM [Entitic source volume] data in Blood by Automated count Platelets 142 - 424 K/mm3 Normal No Sep 11 informati 2017 9:40 [#/volume on in PM ] in source Blood data Erythrocy 4.6 - 6.2 M/mm3 Normal No Sep 11 narendra informati 2016 9:40 [#/volume on in PM ] in source Amniotic data fluid Erythrocy 11.5 - % Normal No Sep 11 te 17.5 informati 2017 9:40 distribut on in PM ion width source [Entitic data volume] by Automated count Leukocyte 4.8 - K/MM3 Normal No Sep 11 s 10.8 informati 2016 9:40 [#/volume on in PM ] in source Blood data Urinalysis dipstick W Reflex Microscopic panel in Urine Observa Value Referen Units Interpr Notes Date tion ce etation Range Appeara CLEAR CLEAR No No No Sep 11 nce of informa informa informa 2016 Urine tion in tion in tion in 9:20 PM source source source data data data Bacteri TRACE O No No No Sep 11 a informa informa informa 2016 [Presen tion in tion in tion in 9:20 PM ce] in source source source Urine data data data sedimen t by Light microsc opy Bilirub NEGATIV NEG No No No Sep 11 in E informa informa informa 2016 [Presen tion in tion in tion in 9:20 PM ce] in source source source Urine data data data by Test strip Erythro NEGATIV NEG No No No Sep 11 cytes E informa informa informa 2016 [Presen tion in tion in tion in 9:20 PM ce] in source source source Urine data data data Color YELLOW YELLOW No No No Sep 11 of informa informa informa 2016 Urine tion in tion in tion in 9:20 PM source source source data data data Glucose NEG No No No Sep 11 [Mass/vol informati informati informati 2016 9:20 ume] in on in on in on in PM Urine by source source source Test data data data strip Ketones NEGATIV NEG mg/dL No No Sep 11 E informa informa 2016 [Presen tion in tion in 9:20 PM ce] in source source Urine data data by Automat ed test strip Mucus NEGATIV NEG No No No Sep 11 [Presen E informa informa informa 2017 ce] in tion in tion in tion in 9:20 PM Urine source source source sedimen data data data t by Light microsc opy Nitrite NEGATIV NEG No No No Sep 11 E informa informa informa 2017 [Presen tion in tion in tion in 9:20 PM ce] in source source source Urine data data data by Test strip pH of 5.0 - 8.5 No Normal No Sep 11 Urine informati informati 2017 9:20 on in on in PM source source data data Protein NEG mg/dL No No Sep 11 [Mass/vol informati informati 2017 9:20 ume] in on in on in PM Urine by source source Automated data data test strip Erythro OCC 0 rbc/hpf No No Sep 11 cytes informa informa 2016 [Presen tion in tion in 9:20 PM ce] in source source Urine data data sedimen t by Light microsc opy Specific 1.005 - No Normal No Sep 11 gravity 1.030 informati informati 2017 9:20 of Urine on in on in PM source source data data Epithel OCC OCC #/hpf No No Sep 11 ial informa informa 2017 cells.s tion in tion in 9:20 PM quamous source source data data [Presen ce] in Urine sedimen t by Microsc opy high power field Urobili 0.2 NEG E.U./dL No No Sep 11 nogen informa informa 2017 [Presen tion in tion in 9:20 PM ce] in source source Urine data data by Test strip Leukocyte O wbc/hpf No No Sep 11 s informati informati 2017 9:20 [#/volume on in on in PM ] in source source Urine data data Urinalysis dipstick W Reflex Microscopic panel in Urine Observa Value Referen Units Interpr Notes Date tion ce etation Range Appeara CLEAR CLEAR No No No Sep 11 nce of informa informa informa 2017 Urine tion in tion in tion in 9:20 PM source source source data data data Bilirub NEGATIV NEG No No No Sep 11 in E informa informa informa 2017 [Presen tion in tion in tion in 9:20 PM ce] in source source source Urine data data data by Test strip Erythro NEGATIV NEG No No No Sep 11 cytes E informa informa informa 2017 [Presen tion in tion in tion in 9:20 PM ce] in source source source Urine data data data Color YELLOW YELLOW No No No Sep 11 of informa informa informa 2016 Urine tion in tion in tion in 9:20 PM source source source data data data Glucose NEG No No No Sep 11 [Mass/vol informati informati informati 2016 9:20 ume] in on in on in on in PM Urine by source source source Test data data data strip Ketones NEGATIV NEG mg/dL No No Sep 11 E informa informa 2016 [Presen tion in tion in 9:20 PM ce] in source source Urine data data by Automat ed test strip Mucus NEGATIV NEG No No No Sep 11 [Presen E informa informa informa 2016 ce] in tion in tion in tion in 9:20 PM Urine source source source sedimen data data data t by Light microsc opy Nitrite NEGATIV NEG No No No Sep 11 E informa informa informa 2016 [Presen tion in tion in tion in 9:20 PM ce] in source source source Urine data data data by Test strip pH of 5.0 - 8.5 No Normal No Sep 11 Urine informati informati 2017 9:20 on in on in PM source source data data Protein NEG mg/dL No No Sep 11 [Mass/vol informati informati 2017 9:20 ume] in on in on in PM Urine by source source Automated data data test strip Specific 1.005 - No Normal No Sep 11 gravity 1.030 informati informati 2016 9:20 of Urine on in on in PM source source data data Urobili 0.2 NEG E.U./dL No No Sep 11 nogen informa informa 2017 [Presen tion in tion in 9:20 PM ce] in source source Urine data data by Test strip Amylase [Enzymatic activity/volume] in Serum or Plasma Observa Value Referen Units Interpr Notes Date tion ce etation Range Amylase 25 - 115 U/L Normal No Sep 8 [Enzymati informati 2017 c on in 11:05 AM activity/ source volume] data in Serum or Plasma Lipase [Enzymatic activity/volume] in Serum or Plasma Observa Value Referen Units Interpr Notes Date tion ce etation Range Lipase 73 - 393 U/L High Sep 8 [Enzymati NOTIFICAT 2017 c ION 11:05 AM activity/ RESULT volume] in Serum or Plasma Amylase [Enzymatic activity/volume] in Serum or Plasma Observa Value Referen Units Interpr Notes Date tion ce etation Range Amylase 25 - 115 U/L Normal No Sep 7 [Enzymati informati 2017 4:45 c on in PM activity/ source volume] data in Serum or Plasma Comprehensive metabolic 2000 panel in Serum or Plasma Observa Value Referen Units Interpr Notes Date tion ce etation Range Albumin/G 1.1 - 1.8 No Normal No Sep 7 lobulin informati informati 2017 4:45 [Mass on in on in PM ratio] in source source Serum or data data Plasma Albumin 3.4 - 5.0 gm/dL Normal No Sep 7 [Mass/vol informati 2017 4:45 ume] in on in PM Serum or source Plasma data Alkaline 46 - 116 U/L High No Sep 7 phosphata informati 2017 4:45 se on in PM [Enzymati source c data activity/ volume] in Serum or Plasma Bilirubin 0.2 - 1.0 mg/dL Normal No Sep 7 .total informati 2017 4:45 [Mass/vol on in PM ume] in source Serum or data Plasma Urea 7 - 18 mg/dL Normal No Sep 7 nitrogen informati 2017 4:45 [Mass/vol on in PM ume] in source Serum or data Plasma Calcium 8.5 - mg/dL Normal No Sep 7 [Mass/vol 10.1 informati 2017 4:45 ume] in on in PM Serum or source Plasma data Chloride 98 - 107 mmoL/L Normal No Sep 7 [Moles/vo informati 2017 4:45 lume] in on in PM Serum or source Plasma data Carbon 21.0 - mmoL/L Normal No Sep 7 dioxide, 32.0 informati 2017 4:45 total on in PM [Moles/vo source lume] in data Serum or Plasma Creatinin 0.70 - mg/dL Normal No Sep 7 e 1.30 informati 2017 4:45 [Mass/vol on in PM ume] in source Serum or data Plasma Creatinin 50 - 200 ML/MIN Normal No Sep 7 e renal informati 2017 4:45 clearance on in PM source predicted data by Cockcroft -Gault formula Estimated >60 ML/MIN No REFERENCE Sep 7 informati RANGE: 2017 4:45 glomerula on in >60 PM r source ML/MIN/1. filtratio data 73 SQUARE n rate METERSIf (GF this patient is -A merican, then multiply theresult by 1.210. Globulin 1.3 - 3.2 gm/dL High No Sep 7 [Mass/vol informati 2016 4:45 ume] in on in PM Serum source data Glucose 74 - 106 mg/dL Normal No Sep 7 [Mass/vol informati 2016 4:45 ume] in on in PM Serum or source Plasma data Potassium 3.5 - 5.1 mmoL/L Normal No Sep 7 inform2016 4:45 [Moles/vo on in PM lume] in source Serum or data Plasma Sodium 136 - 145 mmoL/L Normal No Sep 7 [Moles/vo informati 2016 4:45 lume] in on in PM Serum or source Plasma data Aspartate 15 - 37 U/L High No Sep 7 informati 2016 4:45 aminotran on in PM sferase source [Enzymati data c activity/ volume] in Serum or Plasma Alanine 12 - 78 U/L High No Sep 7 aminotran informati 2016 4:45 sferase on in PM [Enzymati source c data activity/ volume] in Serum or Plasma Protein 6.4 - 8.2 gm/dL Normal No Sep 7 [Mass/vol informati 2016 4:45 ume] in on in PM Serum or source Plasma data Lipase [Enzymatic activity/volume] in Serum or Plasma Observa Value Referen Units Interpr Notes Date tion ce etation Range Lipase 73 - 393 U/L High No Sep 7 [Enzymati informati 2016 4:45 c on in PM activity/ source volume] data in Serum or Plasma CBC W Auto Differential panel in Blood Observa Value Referen Units Interpr Notes Date tion ce etation Range Basophils 0 - 0.2 K/MM3 Normal No Sep 7 inform2016 4:45 [#/volume on in PM ] in source Blood by data Automated count Basophils 0.1 - 2.0 % Normal No Sep 7 /100 informati 2016 4:45 leukocyte on in PM s in source Blood by data Automated count Eosinophi 0.0 - 0.4 K/mm3 High No Sep 7 ls informati 2016 4:45 [#/volume on in PM ] in source Blood by data Automated count Eosinophi 0.1 - % Normal No Sep 7 ls/100 12.0 informati 2017 4:45 leukocyte on in PM s in source Blood by data Automated count Granulocy 1.3 - 8.0 K/mm3 Normal No Sep 7 narendra informati 2016 4:45 [#/volume on in PM ] in source Blood by data Automated count Granulocy 37.0 - % Normal No Sep 7 narendra/100 80.0 informati 2016 4:45 leukocyte on in PM s in source Blood by data Automated count Hematocri 42.0 - % High No Sep 7 t [Volume 52.0 informati 2016 4:45 on in PM Fraction] source of Blood data Hemoglobi 14.1 - g/dL Normal No Sep 7 n 18.0 informati 2017 4:45 [Mass/vol on in PM ume] in source Blood data Lymphocyt 0.7 - 4.5 K/mm3 Normal No Sep 7 es informati 2017 4:45 [#/volume on in PM ] in source Unspecifi data ed specimen by Automated count Lymphocyt 10 - 50 % Normal No Sep 7 es informati 2016 4:45 [#/volume on in PM ] in source Unspecifi data ed specimen by Automated count Erythrocy 27 - 31.2 pg High No Sep 7 te mean informati 2017 4:45 corpuscul on in PM ar source hemoglobi data n [Entitic mass] Erythrocy 31.8 - g/dl Normal No Sep 7 te mean 35.4 informati 2016 4:45 corpuscul on in PM ar source hemoglobi data n concentra tion [Mass/vol ume] by Automated count Erythrocy 82.2 - fl High No Sep 7 te mean 97.8 informati 2016 4:45 corpuscul on in PM ar volume source [Entitic data volume] by Automated count Monocytes 0.1 - 1.0 K/mm3 Normal No Sep 7 informati 2016 4:45 [#/volume on in PM ] in source Blood by data Automated count Monocytes 1.7 - 9.3 % Normal No Sep 7 /100 informati 2017 4:45 leukocyte on in PM s in source Blood by data Automated count Platelet 7.4 - fl Normal No Sep 7 mean 10.4 informati 2016 4:45 volume on in PM [Entitic source volume] data in Blood by Automated count Platelets 142 - 424 K/mm3 Normal No Sep 7 informati 2017 4:45 [#/volume on in PM ] in source Blood data Erythrocy 4.6 - 6.2 M/mm3 Normal No Sep 7 narendra informati 2016 4:45 [#/volume on in PM ] in source Amniotic data fluid Erythrocy 11.5 - % Normal No Sep 7 te 17.5 informati 2017 4:45 distribut on in PM ion width source [Entitic data volume] by Automated count Leukocyte 4.8 - K/MM3 No No Sep 7 s 10.8 informati informati 2017 4:45 [#/volume on in on in PM ] in source source Blood data data Drugs identified in Urine by Screen method Observa Value Referen Units Interpr Notes Date tion ce etation Range Positive urine drug screen samples are stored for 7 days. Contact the Lab if confirmation of positives is needed. Ampheta NEGATIV <1000 ng/mL No No Sep 5 mine E informa informa 2016 [Presen tion in tion in 3:40 PM ce] in source source Urine data data by Screen method Barbitura <200 ng/mL No No Sep 5 narendra informati informati 2017 3:40 [Mass/vol on in on in PM ume] in source source Urine by data data Screen method Benzodiaz 200 ng/mL ng/mL No No Sep 5 epines informati informati 2017 3:40 [Mass/vol on in on in PM ume] in source source Serum or data data Plasma by Screen method Cocaine <300 ng/g No No Sep 5 [Mass/vol informati informati 2017 3:40 ume] in on in on in PM Unspecifi source source ed data data specimen Methadone <300 ng/mL No No Sep 5 informati informati 2017 3:40 [Mass/vol on in on in PM ume] in source source Unspecifi data data ed specimen Opiates <300 ng/mL No No Sep 5 [Mass/vol informati informati 2017 3:40 ume] in on in on in PM Unspecifi source source ed data data specimen Phencycli <25 ng/mL No No Sep 5 dine informati informati 2017 3:40 [Mass/vol on in on in PM ume] in source source Unspecifi data data ed specimen 11-Hydr NEGATIV <50 ng/mL No No Sep 5 oxy E informa informa 2017 delta-9 tion in tion in 3:40 PM source source tetrahy data data drocann abinol [Presen ce] in Unspeci fied specime n Urinalysis dipstick W Reflex Microscopic panel in Urine Observa Value Referen Units Interpr Notes Date tion ce etation Range Appeara CLEAR CLEAR No No No Sep 5 nce of informa informa informa 2017 Urine tion in tion in tion in 3:40 PM source source source data data data Bacteri 2+ O No No No Sep 5 a informa informa informa 2017 [Presen tion in tion in tion in 3:40 PM ce] in source source source Urine data data data sedimen t by Light microsc opy Bilirub 2+ NEG No Abnorma ICTOTES Sep 5 in informa l T = 2017 [Presen tion in NEGATIV 3:40 PM ce] in source E Urine data by Test strip Erythro NEGATIV NEG No No No Sep 5 cytes E informa informa informa 2017 [Presen tion in tion in tion in 3:40 PM ce] in source source source Urine data data data Color DK YELLOW No No No Sep 5 of YELLOW informa informa informa 2017 Urine tion in tion in tion in 3:40 PM source source source data data data Glucose NEG No No No Sep 5 [Mass/vol informati informati informati 2017 3:40 ume] in on in on in on in PM Urine by source source source Test data data data strip Ketones TRACE NEG mg/dL Abnorma No Sep 5 l informa 2016 [Presen tion in 3:40 PM ce] in source Urine data by Automat ed test strip Mucus NEGATIV NEG No No No Sep 5 [Presen E informa informa informa 2017 ce] in tion in tion in tion in 3:40 PM Urine source source source sedimen data data data t by Light microsc opy Mucus 4+ NONE No No No Sep 5 [Presen informa informa informa 2017 ce] in tion in tion in tion in 3:40 PM Urine source source source sedimen data data data t by Light microsc opy Nitrite NEGATIV NEG No No No Sep 5 E informa informa informa 2017 [Presen tion in tion in tion in 3:40 PM ce] in source source source Urine data data data by Test strip pH of 5.0 - 8.5 No Normal No Sep 5 Urine informati informati 2017 3:40 on in on in PM source source data data Protein NEG mg/dL High No Sep 5 [Mass/vol informati 2017 3:40 ume] in on in PM Urine by source Automated data test strip Erythro OCC 0 rbc/hpf No No Sep 5 cytes informa informa 2017 [Presen tion in tion in 3:40 PM ce] in source source Urine data data sedimen t by Light microsc opy Specific 1.005 - No Normal No Sep 5 gravity 1.030 informati informati 2017 3:40 of Urine on in on in PM source source data data Epithel OCC OCC #/hpf No No Sep 5 ial informa informa 2017 cells.s tion in tion in 3:40 PM quamous source source data data [Presen ce] in Urine sedimen t by Microsc opy high power field Urobili 1.0 NEG E.U./dL No No Sep 5 nogen informa informa 2017 [Presen tion in tion in 3:40 PM ce] in source source Urine data data by Test strip Leukocyte O wbc/hpf No No Sep 5 s informati informati 2017 3:40 [#/volume on in on in PM ] in source source Urine data data Urinalysis dipstick W Reflex Microscopic panel in Urine Observa Value Referen Units Interpr Notes Date tion ce etation Range Appeara CLEAR CLEAR No No No Sep 5 nce of informa informa informa 2017 Urine tion in tion in tion in 3:40 PM source source source data data data Bilirub 2+ NEG No Abnorma ICTOTES Sep 5 in informa l T = 2017 [Presen tion in NEGATIV 3:40 PM ce] in source E Urine data by Test strip Erythro NEGATIV NEG No No No Sep 5 cytes E informa informa informa 2017 [Presen tion in tion in tion in 3:40 PM ce] in source source source Urine data data data Color DK YELLOW No No No Sep 5 of YELLOW informa informa informa 2017 Urine tion in tion in tion in 3:40 PM source source source data data data Glucose NEG No No No Sep 5 [Mass/vol informati informati informati 2016 3:40 ume] in on in on in on in PM Urine by source source source Test data data data strip Ketones TRACE NEG mg/dL Abnorma No Sep 5 l informa 2016 [Presen tion in 3:40 PM ce] in source Urine data by Automat ed test strip Mucus NEGATIV NEG No No No Sep 5 [Presen E informa informa informa 2016 ce] in tion in tion in tion in 3:40 PM Urine source source source sedimen data data data t by Light microsc opy Nitrite NEGATIV NEG No No No Sep 5 E informa informa informa 2016 [Presen tion in tion in tion in 3:40 PM ce] in source source source Urine data data data by Test strip pH of 5.0 - 8.5 No Normal No Sep 5 Urine informati informati 2017 3:40 on in on in PM source source data data Protein NEG mg/dL High No Sep 5 [Mass/vol informati 2016 3:40 ume] in on in PM Urine by source Automated data test strip Specific 1.005 - No Normal No Sep 5 gravity 1.030 informati informati 2016 3:40 of Urine on in on in PM source source data data Urobili 1.0 NEG E.U./dL No No Sep 5 nogen informa informa 2016 [Presen tion in tion in 3:40 PM ce] in source source Urine data data by Test strip Amylase [Enzymatic activity/volume] in Serum or Plasma Observa Value Referen Units Interpr Notes Date tion ce etation Range Amylase 25 - 115 U/L Normal No Sep 5 [Enzymati informati 2017 2:35 c on in PM activity/ source volume] data in Serum or Plasma Lipase [Enzymatic activity/volume] in Serum or Plasma Observa Value Referen Units Interpr Notes Date tion ce etation Range Lipase 73 - 393 U/L Normal No Sep 5 [Enzymati informati 2017 2:35 c on in PM activity/ source volume] data in Serum or Plasma CBC W Auto Differential panel in Blood Observa Value Referen Units Interpr Notes Date ti ce etation Range Basophils 0 - 0.2 K/MM3 Normal No Sep 5 informati 2016 2:35 [#/volume on in PM ] in source Blood by data Automated count Basophils 0.1 - 2.0 % Normal No Sep 5 /100 inform2016 2:35 leukocyte on in PM s in source Blood by data Automated count Eosinophi 0.0 - 0.4 K/mm3 Normal No Sep 5 ls inform2016 2:35 [#/volume on in PM ] in source Blood by data Automated count Eosinophi 0.1 - % Normal No Sep 5 ls/100 12.0 inform2016 2:35 leukocyte on in PM s in source Blood by data Automated count Granulocy 1.3 - 8.0 K/mm3 High No Sep 5 narendra inform2016 2:35 [#/volume on in PM ] in source Blood by data Automated count Granulocy 37.0 - % High No Sep 5 narendra/100 80.0 inform2016 2:35 leukocyte on in PM s in source Blood by data Automated count Hematocri 42.0 - % High No Sep 5 t [Volume 52.0 2016 2:35 on in PM Fraction] source of Blood data Hemoglobi 14.1 - g/dL High No Sep 5 n 18.0 2016 2:35 [Mass/vol on in PM ume] in source Blood data Lymphocyt 0.7 - 4.5 K/mm3 Normal No Sep 5 es inform 2017 2:35 [#/volume on in PM ] in source Unspecifi data ed specimen by Automated count Lymphocyt 10 - 50 % Normal No Sep 5 es 2017 2:35 [#/volume on in PM ] in source Unspecifi data ed specimen by Automated count Erythrocy 27 - 31.2 pg High No Sep 5 te mean inform2016 2:35 corpuscul on in PM ar source hemoglobi data n [Entitic mass] Erythrocy 31.8 - g/dl Normal No Sep 5 te mean 35.4 informati 2016 2:35 corpuscul on in PM ar source hemoglobi data n concentra tion [Mass/vol ume] by Automated count Erythrocy 82.2 - fl High No Sep 5 te mean 97.8 inform2016 2:35 corpuscul on in PM ar volume source [Entitic data volume] by Automated count Monocytes 0.1 - 1.0 K/mm3 Normal No Sep 5 2016 2:35 [#/volume on in PM ] in source Blood by data Automated count Monocytes 1.7 - 9.3 % Normal No Sep 5 /100 informati 2016 2:35 leukocyte on in PM s in source Blood by data Automated count Platelet 7.4 - fl Normal No Sep 5 mean 10.4 informati 2016 2:35 volume on in PM [Entitic source volume] data in Blood by Automated count Platelets 142 - 424 K/mm3 Normal No Sep 5 informati 2016 2:35 [#/volume on in PM ] in source Blood data Erythrocy 4.6 - 6.2 M/mm3 Normal No Sep 5 narendra informati 2017 2:35 [#/volume on in PM ] in source Amniotic data fluid Erythrocy 11.5 - % Normal No Sep 5 te 17.5 informati 2016 2:35 distribut on in PM ion width source [Entitic data volume] by Automated count Leukocyte 4.8 - K/MM3 High No Sep 5 s 10.8 informati 2016 2:35 [#/volume on in PM ] in source Blood data Ethanol [Mass/volume] in Serum or Plasma Observa Value Referen Units Interpr Notes Date tion ce etation Range Ethanol 0 - 99 mg/dL Normal ANY Sep 5 [Mass/vol ALCOHOL > 2017 2:35 ume] in OR = 80 PM Serum or MG/DL IS Plasma CONSIDERE D LEGALLYIN TOXICATED UNDER [place] STATE LAW. Comprehensive metabolic 2000 panel in Serum or Plasma Observa Value Referen Units Interpr Notes Date tion ce etation Range Albumin/G 1.1 - 1.8 No Normal No Sep 5 lobulin informati informati 2016 2:35 [Mass on in on in PM ratio] in source source Serum or data data Plasma Albumin 3.4 - 5.0 gm/dL Normal No Sep 5 [Mass/vol informati 2017 2:35 ume] in on in PM Serum or source Plasma data Alkaline 46 - 116 U/L High No Sep 5 phosphata informati 2017 2:35 se on in PM [Enzymati source c data activity/ volume] in Serum or Plasma Bilirubin 0.2 - 1.0 mg/dL Normal No Sep 5 .total informati 2017 2:35 [Mass/vol on in PM ume] in source Serum or data Plasma Urea 7 - 18 mg/dL Normal No Sep 5 nitrogen informati 2017 2:35 [Mass/vol on in PM ume] in source Serum or data Plasma Calcium 8.5 - mg/dL Normal No Sep 5 [Mass/vol 10.1 informati 2017 2:35 ume] in on in PM Serum or source Plasma data Chloride 98 - 107 mmoL/L Normal No Sep 5 [Moles/vo informati 2017 2:35 lume] in on in PM Serum or source Plasma data Carbon 21.0 - mmoL/L Normal No Sep 5 dioxide, 32.0 informati 2017 2:35 total on in PM [Moles/vo source lume] in data Serum or Plasma Creatinin 0.70 - mg/dL Normal No Sep 5 e 1.30 informati 2017 2:35 [Mass/vol on in PM ume] in source Serum or data Plasma Creatinin 50 - 200 ML/MIN Normal No Sep 5 e renal informati 2016 2:35 clearance on in PM source predicted data by Cockcroft -Gault formula Estimated >60 ML/MIN No REFERENCE Sep 5 informati RANGE: 2017 2:35 glomerula on in >60 PM r source ML/MIN/1. filtratio data 73 SQUARE n rate METERSIf (GF this patient is -A merican, then multiply theresult by 1.210. Globulin 1.3 - 3.2 gm/dL High No Sep 5 [Mass/vol informati 2016 2:35 ume] in on in PM Serum source data Glucose 74 - 106 mg/dL High No Sep 5 [Mass/vol informati 2017 2:35 ume] in on in PM Serum or source Plasma data Potassium 3.5 - 5.1 mmoL/L Normal No Sep 5 informati 2016 2:35 [Moles/vo on in PM lume] in source Serum or data Plasma Sodium 136 - 145 mmoL/L Normal No Sep 5 [Moles/vo informati 2017 2:35 lume] in on in PM Serum or source Plasma data Aspartate 15 - 37 U/L High No Sep 5 informati 2017 2:35 aminotran on in PM sferase source [Enzymati data c activity/ volume] in Serum or Plasma Alanine 12 - 78 U/L High No Sep 5 aminotran informati 2017 2:35 sferase on in PM [Enzymati source c data activity/ volume] in Serum or Plasma Protein 6.4 - 8.2 gm/dL Normal No Sep 5 [Mass/vol informati 2017 2:35 ume] in on in PM Serum or source Plasma data CBC W Auto Differential panel in Blood Observa Value Referen Units Interpr Notes Date tion ce etation Range Basophils 0 - 0.2 K/MM3 Normal No Nov 15 inform2016 2:25 [#/volume on in PM ] in source Blood by data Automated count Basophils 0.1 - 2.0 % Normal No Nov 15 /100 informati 2016 2:25 leukocyte on in PM s in source Blood by data Automated count Eosinophi 0.0 - 0.4 K/mm3 Normal No Nov 26 ls informati 2016 2:25 [#/volume on in PM ] in source Blood by data Automated count Eosinophi 0.1 - % Normal No Nov 26 ls/100 12.0 informati 2016 2:25 leukocyte on in PM s in source Blood by data Automated count Granulocy 1.3 - 8.0 K/mm3 High No Nov 15 narendra 2016 2:25 [#/volume on in PM ] in source Blood by data Automated count Granulocy 37.0 - % Normal No Nov 26 narendra/100 80.0 ati 2016 2:25 leukocyte on in PM s in source Blood by data Automated count Hematocri 42.0 - % Normal No Nov 26 t [Volume 52.0 ati 2016 2:25 on in PM Fraction] source of Blood data Hemoglobi 14.1 - g/dL Normal No Nov 26 n 18.0 2016 2:25 [Mass/vol on in PM ume] in source Blood data Lymphocyt 0.7 - 4.5 K/mm3 Normal No Nov 26 es 2016 2:25 [#/volume on in PM ] in source Unspecifi data ed specimen by Automated count Lymphocyt 10 - 50 % Normal No Nov 26 es 2016 2:25 [#/volume on in PM ] in source Unspecifi data ed specimen by Automated count Erythrocy 27 - 31.2 pg High No Nov 26 te mean informati 2016 2:25 corpuscul on in PM ar source hemoglobi data n [Entitic mass] Erythrocy 31.8 - g/dl Normal No Nov 26 te mean 35.4 informati 2016 2:25 corpuscul on in PM ar source hemoglobi data n concentra tion [Mass/vol ume] by Automated count Erythrocy 82.2 - fl Normal No Nov 26 te mean 97.8 informati 2016 2:25 corpuscul on in PM ar volume source [Entitic data volume] by Automated count Monocytes 0.1 - 1.0 K/mm3 Normal No Nov 26 inform2016 2:25 [#/volume on in PM ] in source Blood by data Automated count Monocytes 1.7 - 9.3 % Normal No Nov 15 /100 inform2016 2:25 leukocyte on in PM s in source Blood by data Automated count Platelet 7.4 - fl Normal No Nov 26 mean 10.4 2016 2:25 volume on in PM [Entitic source volume] data in Blood by Automated count Platelets 142 - 424 K/mm3 Normal No Nov 26 inform2016 2:25 [#/volume on in PM ] in source Blood data Erythrocy 4.6 - 6.2 M/mm3 Normal No Nov 26 narendra 2016 2:25 [#/volume on in PM ] in source Amniotic data fluid Erythrocy 11.5 - % Normal No Nov 26 te 17.5 2016 2:25 distribut on in PM ion width source [Entitic data volume] by Automated count Leukocyte 4.8 - K/MM3 High No Nov 26 s 10.8 2016 2:25 [#/volume on in PM ] in source Blood data Ethanol [Mass/volume] in Serum or Plasma Observa Value Referen Units Interpr Notes Date tion ce etation Range Ethanol 0 - 99 mg/dL Normal ANY Nov 26 [Mass/vol ALCOHOL > 2017 2:25 ume] in OR = 80 PM Serum or MG/DL IS Plasma CONSIDERE D LEGALLYIN TOXICATED UNDER [facility] LAW. Amylase [Enzymatic activity/volume] in Serum or Plasma Observa Value Referen Units Interpr Notes Date tion ce etation Range Amylase 25 - 115 U/L Low No Nov 26 [Enzymati informati 2016 2:25 c on in PM activity/ source volume] data in Serum or Plasma Comprehensive metabolic 2000 panel in Serum or Plasma Observa Value Referen Units Interpr Notes Date tion ce etation Range Albumin/G 1.1 - 1.8 No Normal No Nov 26 lobulin informati informati 2016 2:25 [Mass on in on in PM ratio] in source source Serum or data data Plasma Albumin 3.4 - 5.0 gm/dL Normal No Nov 26 [Mass/vol informati 2016 2:25 ume] in on in PM Serum or source Plasma data Alkaline 46 - 116 U/L High No Nov 26 phosphata informati 2016 2:25 se on in PM [Enzymati source c data activity/ volume] in Serum or Plasma Bilirubin 0.2 - 1.0 mg/dL Normal No Nov 26 .total informati 2016 2:25 [Mass/vol on in PM ume] in source Serum or data Plasma Urea 7 - 18 mg/dL Normal No Nov 26 nitrogen informati 2017 2:25 [Mass/vol on in PM ume] in source Serum or data Plasma Calcium 8.5 - mg/dL Normal No Nov 26 [Mass/vol 10.1 informati 2016 2:25 ume] in on in PM Serum or source Plasma data Chloride 98 - 107 mmoL/L Normal No Nov 26 [Moles/vo informati 2016 2:25 lume] in on in PM Serum or source Plasma data Carbon 21.0 - mmoL/L Normal No Nov 26 dioxide, 32.0 informati 2017 2:25 total on in PM [Moles/vo source lume] in data Serum or Plasma Creatinin 0.70 - mg/dL Normal No Nov 26 e 1.30 informati 2016 2:25 [Mass/vol on in PM ume] in source Serum or data Plasma Creatinin 50 - 200 ML/MIN Normal No Nov 26 e renal informati 2016 2:25 clearance on in PM source predicted data by Cockcroft -Gault formula Estimated >60 ML/MIN No REFERENCE Nov 26 informati RANGE: 2017 2:25 glomerula on in >60 PM r source ML/MIN/1. filtratio data 73 SQUARE n rate METERSIf (GF this patient is -A merican, then multiply theresult by 1.210. Globulin 1.3 - 3.2 gm/dL High No Nov 26 [Mass/vol informati 2017 2:25 ume] in on in PM Serum source data Glucose 74 - 106 mg/dL High No Nov 26 [Mass/vol informati 2016 2:25 ume] in on in PM Serum or source Plasma data Potassium 3.5 - 5.1 mmoL/L Normal No Nov 26 informati 2016 2:25 [Moles/vo on in PM lume] in source Serum or data Plasma Sodium 136 - 145 mmoL/L Normal No Nov 26 [Moles/vo informati 2017 2:25 lume] in on in PM Serum or source Plasma data Aspartate 15 - 37 U/L Normal No Nov 26 informati 2016 2:25 aminotran on in PM sferase source [Enzymati data c activity/ volume] in Serum or Plasma Alanine 12 - 78 U/L Normal No Nov 26 aminotran informati 2016 2:25 sferase on in PM [Enzymati source c data activity/ volume] in Serum or Plasma Protein 6.4 - 8.2 gm/dL Normal No Nov 26 [Mass/vol ati 2016 2:25 ume] in on in PM Serum or source Plasma data Lipase [Enzymatic activity/volume] in Serum or Plasma Observa Value Referen Units Interpr Notes Date tion ce etation Range Lipase 73 - 393 U/L Low No Nov 26 [Enzymati informati 2016 2:25 c on in PM activity/ source volume] data in Serum or Plasma
--- OUTSIDE RECORDS SUMMARY | 2017-01-19 08:10 | External Medical Summary Rpt ---
[...] data ed at: [facility] [address] [id number] [address] [place], [place] [id number] Slicer Machine Operator: Dustin Morrell PhD, Phone: [phone] CBC W Auto Differential panel in [...] IS Plasma CONSIDERE D LEGALLYIN TOXICATED UNDER [place] LAW. Comprehensive metabolic 2000 panel in [...] IS Plasma CONSIDERE D LEGALLYIN TOXICATED UNDER [facility] LAW. Amylase [Enzymatic activity/volume] in Serum or [...]
--- OUTSIDE RECORDS SUMMARY | 2017-01-19 08:27 | External Medical Summary Rpt ---
Author Author , ELINA Vang ELINA Address Unknown Phone [email or web address] Purpose Continuity of Care Document - 11-26-2016 [...]
--- OUTSIDE RECORDS SUMMARY | 2017-01-19 08:27 | External Medical Summary Rpt ---
Author Author , JAMILA MARINO Address Unknown Phone [email or web address] Immunization Name Date Rout CVX Reac Dose Comm Prov Is Faci e tion ent ider Refu lity Give sed n Infl 08-2 Intr 150 0.5 Hist KHAF No RITE uenz 3-20 amus mL oric SUZIE AID0 a 17 cula al AYMA 3938 Quad r Info N Inj rmat ion - Sour ce Unsp ecif ied
--- OUTSIDE RECORDS SUMMARY | 2017-01-19 08:27 | External Medical Summary Rpt ---
Author Author , JAMILA MARINO Address Unknown Phone [email or web address] Immunization Name Date Rout CVX Reac Dose Comm Prov Is Faci e tion ent ider Refu lity Give sed n Infl 08-2 Intr 150 0.5 Hist KHAF No RITE uenz 3-20 amus mL oric SUZIE AID0 a 17 cula al AYMA 3938 Quad r Info N Inj rmat ion - Sour ce Unsp ecif ied
--- OUTSIDE RECORDS SUMMARY | 2017-01-19 08:27 | External Medical Summary Rpt ---
Author Author , ELINA Vang ELINA Address Unknown Phone [email or web address] Purpose Continuity of Care Document - 11-26-2016 [...]
--- OUTSIDE RECORDS SUMMARY | 2017-01-19 08:29 | External Medical Summary Rpt ---
[...] data ed at: [facility] [address] [address] [address] [place], [place] [id number] Beamer Helper: Dustin Morrell PhD, Phone: [phone] CBC W Auto Differential panel in [...] IS Plasma CONSIDERE D LEGALLYIN TOXICATED UNDER [place] STATE LAW. Comprehensive metabolic 2000 panel in [...] IS Plasma CONSIDERE D LEGALLYIN TOXICATED UNDER [facility] LAW. Amylase [Enzymatic activity/volume] in Serum [...]
--- OUTSIDE RECORDS SUMMARY | 2017-01-19 08:29 | External Medical Summary Rpt ---
[...] data ed at: [facility] [address] [address] [address] [place], [place] [id number] Beater Head: Dustin Morrell PhD, Phone: [phone] CBC W Auto Differential panel in [...] IS Plasma CONSIDERE D LEGALLYIN TOXICATED UNDER [place] STATE LAW. Comprehensive metabolic 2000 panel in [...] IS Plasma CONSIDERE D LEGALLYIN TOXICATED UNDER [facility] LAW. Amylase [Enzymatic activity/volume] in Serum [...]
== END 2016-12-20 13:20 | disposition home or self-care (01) ==
LOC: ER 16:19 → 2ND 18:26
PROVIDERS: Emergency Medicine
DX: K85.90 Acute pancreatitis without necrosis or infection, unspecified (principal); K86.1 Other chronic pancreatitis; I10 Essential (primary) hypertension
CPT/HCPCS: G0378; J2405; Q9967

== ENCOUNTER 2016-12-23 21:08 | Emergency (ER) | payer MEDICAID ==
[~2016-12-23] VITALS: Ht 185.4 cm; Wt 77.1 kg
[~2016-12-23 21:08] MED LIST changes: +METHOCARBAMOL500 MG PO; +PERCOCET1 TAB PO
--- NOTE | 2016-12-23 21:34 | Emergency Room Report ---
History of Present Illness Time Seen by 2100 Presenting Problem in Triage Pt arrived:Walked Presenting Problem:C/O ABDOMINAL PAIN WITH VOMITING. 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 N Clinical Suspician of Infection? Y Mental Status: 1 - Regular (Normal Baseline) Sepsis Risk:Possible Sepsis Risk Have you (or family members/close friends) recently traveled outside the [place]? N If Yes, where/when: Have you had exposure to infectious disease within the past month? N TB? Other? Specify: Source patient, RN notes reviewed, family, old records Exam Limitations no limitations Comment pt with known pancreatitis with recent admit for same and presents with upper abd pain = no fever or etoh - pt has vomiting - no melena Cardiac Chest Pain Chest pain indicative of cardiac No Timing/Duration this evening Severity moderate ALLERGIES Coded Allergies: lisinopril (LIGHTHEADED 11/26/16) morphine (I-HIVES 11/26/16) Home Medications Reported Medications Gabapentin (Gabapentin 300MG) 600 MG PO QHS Gabapentin (Gabapentin 300MG) 300 MG PO QAM METHOCARBAMOL (Methocarbamol) 500 MG PO TID Escitalopram Oxalate (Lexapro 20MG) 20 MG PO DAILY Hydralazine Hcl (Hydralazine 25MG Tab) 25 MG PO BID History Medical History General CAD? No Angina: No [place]: No Hypertension? Yes Hyperlipidemia? No CHF? No DVT? No PE? No COPD? No Asthma? No Anemia? No GERD? Yes Gastric ulcers? No GI Bleed? No Hernia? No Thyroid Problems? No Hypothyroidism? No CVA? No Seizures? No Diabetes? No Renal Insuffiency? No End Stage Renal Disease? No UTI? Yes Stones? Yes GB Disease: No Nephritic Syndrome? No Asplenia? No Hepatitis? No Sickle Cell Disease? No Arthritis? No Migraines? No Cataracts? No Glaucoma? No MRSA? No HIV? No TB? No Anxiety? Yes Depression? Yes Cancer? No More? Yes Additional hx: CHRONIC PANCREATITIS Immunization Hx DT/Tetanus Unknown Pneumonia Received In Past Surgical Hx Previous Surgery?Y GALLBLADDER ERCP Family History Family Hx Diabetes No CAD Yes Hypertension Yes Hyperlipidemia Yes Cancer Yes TB No Social History Smoking Hx Smoker: Current Every Day Smoker Tobacco: Yes Type Cigarettes Packs/day < 1 Pack Alcohol Alcohol: No Drugs none Review of Systems All Other Systems Reviewed and Negative Constitutional denies fever Eyes denies drainage ENT denies: ear pain, epistaxis, throat pain. Respiratory denies cough, denies shortness of breath, denies wheezing Cardiovascular denies chest pain, denies syncope Gastrointestinal see HPI, abdominal pain, nausea, vomiting Genitourinary denies: dysuria, frequency, hesitancy, hematuria. Musculoskeletal denies back pain, denies joint pain, denies joint swelling, denies neck pain Skin denies rash Psychiatric/Neurological denies headache, denies seizure Physical Exam Vital Signs Vital Signs Date Time Temp Pulse Resp B/P Pulse O2 O2 Flow FiO2 Ox Delivery Rate 12/23 2204 20 12/24 2155 98.5 94 20 144/98 96 12/23 2121 98.5 96 20 149/97 98 - WBC >12,000 or <4,000 or 10% bands? 2 or more SIRS Criteria Met? B/P:144/98 MAP:114 Creatinine >2.0? UA output<0.5ml/kg/hr for 2 hrs? Platelet count >100,000? Lactate >2.0mmol/1? INR >1.2 or PTT > than 60 sec? Evidence of Organ Dysfunction? Provider documented clinical suspician of infection? Y Sepsis Criteria Count: 2 Sepsis Risk: Possible Sepsis Risk General Appearance no apparent distress Eye Exam - bilateral eye PERRL, bilateral eye EOMI Ear, Nose, Throat normal ENT inspection, no icterus Neck supple Respiratory Status No: respiratory distress. 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 No Results/Orders Laboratory Tests 12/23/162139: Sodium 142, Potassium 4.1, Chloride 105, Carbon Dioxide 29, BUN 12, Creatinine 1.0, Estimated Creat Clear 106, Estimated GFR (MDRD) 82, Glucose 141 H, Calcium 9.2, Total Bilirubin 0.7, AST 38 H, ALT 97 H, Alkaline Phosphatase 349 H, Total Protein 7.0, Albumin 3.7, Globulin 3.3 H, Albumin/Globulin Ratio 1.1, Amylase 45, Lipase 282, WBC 10.4, RBC 5.02, Hgb 16.9, Hct 49.1, MCV 97.9 H, RDW 13.5, Plt Count 205, MPV 8.1, Gran % 77.5, Gran # 8.1 H, Lymphocytes % 12.4, Monocytes % 5.8, Eosinophils % 4.0, Basophils % 0.4, Lymphocytes # 1.3, Monocytes # 0.6, Eosinophils # 0.4, Basophils # 0.0, PUBS MCHC 34.4, MCH 33.6 H 12/23/162119: Urine Color YELLOW, Urine Appearance CLEAR, Urine pH 7.5, Ur Specific [place] 1.010, Urine Protein NEGATIVE, Urine Ketones NEGATIVE, Urine Blood NEGATIVE, Urine Nitrate NEGATIVE, Urine Bilirubin NEGATIVE, Urine Urobilinogen 0.2, Ur Leukocyte Esterase NEGATIVE, Urine RBC OCC, Urine WBC OCC, Ur Squamous Epith Cells OCC, Urine Bacteria TRACE, Urine Glucose NEGATIVE Current Medication Orders Sig/Luther Start time Last Medication Dose Route Stop Time Status Admin Hydromorphone HCl 0 .STK-MED ONE 12/23 2202 DCr .ROUTE Ondansetron HCl 0 .STK-MED ONE 12/23 2202 DC .ROUTE Hydromorphone HCl 1 MG ONCE ONE 12/23 2199 DCr 12/23 IV 12/23 Ondansetron HCl 4 MG ONCE ONE 12/23 2199 DC 12/23 IV 12/23 Sodium Chloride 1,000 ML .STK-MED ONE 12/24 2151 DC IV Sodium Chloride 10 ML PRN PRN 12/23 2129 AC IV 12/24 2118 Sodium Chloride 1,000 ML .Q1H1M 12/23 2129 DC 12/23 IV 12/23 Sodium Chloride 10 ML PRN PRN 12/23 2129 AC IV 12/25 2119 Orders Procedure Date/time Status DIET-NOTHING BY MOUTH 12/[address] ABD & PELVIS W/O CONTRAST 12/[address] SCAN REQ 12/24 2119 Complete IV SALINE LOCK 12/24 2119 Active URINALYSIS/COMPLETE 12/24 2119 Complete LIPASE 12/24 2119 Complete COMPLETE METABOLIC PANEL 12/24 2119 Complete CBC WITH AUTO DIFF 12/24 2119 Complete AMYLASE 12/24 2119 Complete XRAY/CT/US XRAY/CT/US CT abdomen, pelvis CT interpretation by discussed w/radiologist Time results known: 2239 CT Results abnormal (seechart) Departure Departure Time of Disposition 2240 Disposition DC Home or Self Care(routine) Clinical Impression Primary Impression: Pancreatitis Qualifiers: Chronicity: chronic Pancreatitis type: unspecified pancreatitis type Qualified Code: K86.1 - Other chronic pancreatitis Condition STABLE Referrals MIHIR CHEUNG (Family) discussed with dr tavares Patient Instructions DI for Pancreatitis Additional Instructions fluids and see pcp for follow up Discharge Counseling Counseled pt/family regarding diagnosis, test results, medications/RX, follow up needs ED Critical Care Critical Care No at 1425
[2016-12-23 21:40] LABS: URINE BILIRUBIN - DIPSTICK NEGATIVE (NEG); URINE BLOOD NEGATIVE (NEG)
[2016-12-23 21:55] LABS: HEMOGLOBIN 16.9 g/dL (14.1-18.0); LYMPH # 1.3 K/mm3 (0.7-4.5); LYMPH % 12.4 % (10-50)
[2016-12-23 21:59] LABS: URINE SQUAMOUS CELLS OCC #/hpf (OCC)
[2016-12-23 23:25] VITALS: BP 140/87
--- NOTE | 2016-12-24 06:32 | RADIOLOGY REPORT PS360 ---
CT ABD PELVIS W/O CONTRAST CLINICAL INDICATION: Right upper quadrant pain ABD PAIN ORDERING PHYSICIAN: Joya Jacobson MD PATIENT AGE: 41 years COMPARISON: 12/19/2016 TECHNIQUE: Axial images obtained with sagittal and coronal reformats. PROCEDURE: Oral Contrast: None IV Contrast: None . FINDINGS: Lung bases are clear. There is been a prior cholecystectomy. Intra and extrahepatic biliary ductal dilatation once again noted. Pancreatic ductal dilatation also present as before. There is mild stranding of the peripancreatic fat suggesting mild acute pancreatitis slightly worse on today's exam. There are mildly prominent peripancreatic lymph nodes. There are small retroperitoneal lymph nodes also present. Nonobstructing bilateral renal stones are present. No hydronephrosis. No evidence of intestinal obstruction or free air. Unremarkable appendix. There is mild thickening versus nondistention of the sigmoid colon. No evidence of diverticulitis. Para no acute bony anomalies. IMPRESSION: 1. Slight increase in stranding of the peripancreatic fat consistent with acute pancreatitis which may be superimposed upon chronic pancreatitis. There are mildly prominent peripancreatic lymph nodes. Pancreatic neoplasm or even a lesion within the distal common bile duct still a consideration as better demonstrated on the previous exam with contrast. Consider ERCP when pancreatitis resolves. 2. Bilateral nephrolithiasis
== END 2016-12-23 23:33 | disposition home or self-care (01) ==
LOC: ER 21:08
PROVIDERS: Emergency Medicine
DX: K86.1 Other chronic pancreatitis (principal); F17.210 Nicotine dependence, cigarettes, uncomplicated; Z79.899 Other long term (current) drug therapy
CPT/HCPCS: J2405

== ENCOUNTER 2016-12-28 21:15 | Emergency (ER) | payer MEDICAID ==
[~2016-12-28] VITALS: Ht 185.4 cm; Wt 77.1 kg
[2016-12-28 21:32] LABS: URINE BILIRUBIN - DIPSTICK NEGATIVE (NEG); URINE BLOOD NEGATIVE (NEG)
--- NOTE | 2016-12-28 21:33 | Emergency Room Report ---
History of Present Illness Time Seen by [id number] Presenting Problem in Triage Pt arrived:Walked Presenting Problem:C/O ABDOMINAL PAIN WITH RADIATION TO BACK. HAS BEEN IN THIS ED 3 TIMES IN LAST 2 WEEKS FOR SAME COMPLAINTS. FOLLOWED UP WITH PCP WHOP IS REFERRING TO PAIN CLINIC 01/13/17. 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 N Clinical Suspician of Infection? N Mental Status: 1 - Regular (Normal Baseline) Sepsis Risk:Possible Sepsis Risk Have you (or family members/close friends) recently traveled outside the [place]? N If Yes, where/when: Have you had exposure to infectious disease within the past month? N TB? Other? Specify: Comment The patient complains of acute flareup of chronic pancreatitis. His current pain exacerbation has been for the past 2 days. He does also have chronic daily pain. His current primary care physician is Dr. Nugent in [place], and he has been referred to pain management but does not have an appointment until 01/13/17. He states that he has been told by his primary care physician to come to the emergency department whenever he has a flareup until he sees pain management. He says he does not think his primary care physician prescribes controlled substances. He says nothing works for his pain other than controlled substances. He has tried nonsteroidals and tramadol in the past. He was in pain management for about 4 months, but was discharged from the practice in July of this year because of missing a pill count appointment. He says he received the call to relate to make it to the office before it closed. He has been seen here several times for the same issues. He has been seen on , 12/17/16, 12/19/16, and 12/23/16. He was admitted on his emergency department of 12/19/16. He has had CT scans on 2 of his visits, 12/19/16 and 12/23/16. The patient states he was also seen at [place] emergency department the day after he was seen here, which would be 12/24/16. He initially tells me that he had a CT scan done at that hospital as well, but seems confused, in that he says he did not have a CT scan done here on 12/23/16, which he in fact did. He is not sure whether he had a CT scan done at [facility]. He says he did well for a couple of days after that, but then his pain flared up again. ALLERGIES Coded Allergies: lisinopril (LIGHTHEADED 11/26/16) morphine (I-HIVES 11/26/16) Home Medications Reported Medications Gabapentin (Gabapentin 300MG) 600 MG PO QHS Gabapentin (Gabapentin 300MG) 300 MG PO QAM METHOCARBAMOL (Methocarbamol) 500 MG PO TID Escitalopram Oxalate (Lexapro 20MG) 20 MG PO DAILY Hydralazine Hcl (Hydralazine 25MG Tab) 25 MG PO BID History Medical History General CAD? No Angina: No [place]: No Hypertension? Yes Hyperlipidemia? No CHF? No DVT? No PE? No COPD? No Asthma? No Anemia? No GERD? Yes Gastric ulcers? No GI Bleed? No Hernia? No Thyroid Problems? No Hypothyroidism? No CVA? No Seizures? No Diabetes? No Renal Insuffiency? No End Stage Renal Disease? No UTI? Yes Stones? Yes GB Disease: No Nephritic Syndrome? No Asplenia? No Hepatitis? No Sickle Cell Disease? No Arthritis? No Migraines? No Cataracts? No Glaucoma? No MRSA? No HIV? No TB? No Anxiety? Yes Depression? Yes Cancer? No More? Yes Additional hx: CHRONIC PANCREATITIS Immunization Hx DT/Tetanus Unknown Pneumonia Received In Past Surgical Hx Previous Surgery?Y GALLBLADDER ERCP Family History Family Hx Diabetes No CAD Yes Hypertension Yes Hyperlipidemia Yes Cancer Yes TB No Social History Smoking Hx Smoker: Current Every Day Smoker Tobacco: Yes Type Cigarettes Packs/day < 1 Pack Alcohol Alcohol: No Review of Systems All Other Systems Reviewed and Negative Constitutional denies fever Gastrointestinal abdominal pain, vomiting Musculoskeletal back pain Physical Exam Vital Signs Vital Signs Date Time Temp Pulse Resp B/P Pulse O2 O2 Flow FiO2 Ox Delivery Rate 12/29 2307 98.4 89 20 163/108 95 12/28 2305 98.4 89 20 163/108 95 12/288 20 12/28 2204 20 12/28 2117 98.4 101 20 156/110 96 General Appearance no apparent distress Eye Exam - bilateral eye normal exam, bilateral eye PERRL, bilateral eye EOMI Ear, Nose, Throat hearing grossly normal, normal ENT inspection Neck normal inspection, non-tender, supple, full range of motion Respiratory Status Yes: trachea midline, chest symmetrical, non tender chest. No: respiratory distress. Lung Sounds bilateral: normal breath sounds, lungs clear. Cardiovascular normal exam, regular rate/rhythm, no peripheral edema, no gallop, no JVD, no murmur, no rub, normal peripheral pulses Peripheral Pulses Pulses normal Yes Gastrointestinal normal bowel sounds, normal exam, non tender, soft, no organomegaly Extremities non-tender, normal range of motion, normal inspection Neurologic alert, normal exam, oriented x 3 Mental status normal mood/affect Skin intact, normal color, warm/dry Medical Decision Making LABS/Meds/Orders Pt receiving controlled substance in ED? Yes Abdirizak was queried for this patient? Yes Comment [id number] 25 rxs. last rx 12 percocet on 12/24/16. Dr. Gurdeep Storm (). Per patient's history, correlates with [place] ED visit. Last rx apparently from pain mgmt 07/27/16, Dr. Wood. 14 rxs since then. Results/Orders Laboratory Tests 12/28/162140: Amylase 45, Lipase 302 12/28/162140: Sodium 143, Potassium 4.1, Chloride 107, Carbon Dioxide 24, BUN 13, Creatinine 1.0, Estimated Creat Clear 106, Estimated GFR (MDRD) 82, Glucose 158 H, Calcium 9.2, Total Bilirubin 0.3, AST 27, ALT 66, Alkaline Phosphatase 276 H, Total Protein 7.5, Albumin 3.9, Globulin 3.6 H, Albumin/Globulin Ratio 1.1, WBC 11.4 H, RBC 5.31, Hgb 17.7, Hct 51.2, MCV 96.4, RDW 13.7, Plt Count 276, MPV 7.6, Gran % 68.2, Gran # 7.7, Lymphocytes % 21.6, Monocytes % 5.8, Eosinophils % 3.9, Basophils % 0.6, Lymphocytes # 2.5, Monocytes # 0.7, Eosinophils # 0.4, Basophils # 0.1, PUBS MCHC 34.5, MCH 33.3 H 12/28/162129: Opiates Screen NEGATIVE, Urine Methadone Screen NEGATIVE, Barbiturates NEGATIVE, Phencyclidine Screen NEGATIVE, Amphetamines Screen NEGATIVE, Benzodiazepines Screen NEGATIVE, Cocaine Screen NEGATIVE, Marijuana (THC) Screen NEGATIVE, Urine Color YELLOW, Urine Appearance CLEAR, Urine pH 6.0, Ur Specific [place] 1.025, Urine Protein NEGATIVE, Urine Ketones NEGATIVE, Urine Blood NEGATIVE, Urine Nitrate NEGATIVE, Urine Bilirubin NEGATIVE, Urine Urobilinogen 0.2, Ur Leukocyte Esterase NEGATIVE, Urine RBC 3-5, Urine WBC OCC, Ur Squamous Epith Cells 3-5, Urine Bacteria 1+, Urine Mucus 2+, Urine Glucose NEGATIVE Current Medication Orders Sig/Luther Start time Last Medication Dose Route Stop Time Status Admin Hydromorphone HCl 1 MG ONCE ONE 12/28 2299 DCr 12/28 IV 12/28 Hydromorphone HCl 0 .STK-MED ONE 12/28 2256 DCr .ROUTE Sodium Chloride 1,000 ML .STK-MED ONE 12/28 2201 DC IV Hydromorphone HCl 0 .STK-MED ONE 12/28 2200 DCr .ROUTE Ondansetron HCl 0 .STK-MED ONE 12/28 2200 DC .ROUTE Hydromorphone HCl 1 MG ONCE ONE 12/28 2199 DCr 12/28 IV 12/28 Ondansetron HCl 4 MG ONCE ONE 12/28 2199 DC 12/28 IV 12/28 Sodium Chloride 1,000 ML .Q1H1M 12/28 2199 DC 12/28 IV 12/28 Sodium Chloride 10 ML PRN PRN 12/28 2129 DCD IV 12/30 2127 Orders Procedure Date/time Status LIPASE 12/28 2134 Complete AMYLASE 12/28 2134 Complete IV SALINE LOCK 12/29 2127 Active URINALYSIS/COMPLETE 12/29 2127 Complete DRUG ABUSE SCREEN (10) 12/29 2127 Complete CBC WITH AUTO DIFF 12/29 2127 Complete CHEM 12 PROFILE 12/29 2127 Complete Progress - 9:54 PM: The patient states he has been told by his primary care physician and come the emergency department for flareups, and states that he will need to be here every few days until he is seen by pain management on January 13. I have attempted to contact his primary care physician to try and set up a treatment plan for his emergency department visits. We contacted [facility], who attempted to contact his physician on her cell phone, but received no response. 10:10 PM: Case discussed with Dr. Nugent, PCP. She is not that familiar with the patient, she believes she is only seen him once. She believes she has referred him to gastroenterology. She does not really have any recommendations for plan for his emergency department visits until he sees pain management, but she states that she did not instruct him to go to the emergency department for flareups. She says that he can contact her on Friday and she will try and get him in to gastroenterology sooner. I advised the patient that I would prescribe him 6 Percocet to get him through until Friday. He also requests a list of physicians in [place] that are taking new patients. States he has an appt with Dr. Barreto GI, on the of this month. Departure Departure Disposition DC Home or Self Care(routine) Clinical Impression Primary Impression: Chronic pancreatitis Qualifiers: Pancreatitis type: unspecified pancreatitis type Qualified Code: K86.1 - Other chronic pancreatitis Condition STABLE Patient Instructions DI for Abdominal Pain-Adult, DI for Pancreatitis Additional Instructions You are being provided with a list of physicians available for follow-up of your condition. Please call a physician on this list to arrange a follow-up appointment as soon as possible. Additional instructions for CONTROLLED SUBSTANCES: You have been prescribed a medication that is a controlled substance. Controlled substances include pain medications known as opiates and sedative nerve medications known as benzodiazepines. Some common opiates include: Codeine (such as Tylenol #3) Hydrocodone (Vicodin, Lortab, Lorcet, [place]) Oxycodone (Percocet, Percodan, Oxycodone, Oxy IR) Some common benzodiazepines include: Diazepam (Valium) Lorazepam (Ativan) Alprazolam (Xanax) Clonazepam (Klonopin) Oxazepam (Serax) All of these controlled substances are highly addictive and frequently abused. Misuse can and frequently does lead to addiction as well as overdose and . Short term supplies, 3 days or less, are prescribed because of the highly addictive nature of the medication. Any of the controlled substance medication NOT taken should be disposed of properly and NOT SAVED. The recommended method of disposing of unused medications is: Place the medicines in a sealable plastic bag. If the medicine is a solid, crush it or add water to dissolve it. Add something undesirable (cat litter, coffee grounds, etc.) Dispose of sealed bag in household trash Do not flush or pour unused medicines down a sink or drain. Also, because of the addictive nature and frequent abuse, these medications are sometimes stolen. These medications should be kept in a safe place where they cannot be stolen. Do not keep them in your car or purse. Lost or stolen prescriptions for controlled substances WILL NOT BE REFILLED in this emergency department, regardless of whether a police report was filed. Prescriptions Current Visit Scripts OXYCODONE HCL/ACETAMINOPHEN (Percocet 5-325 MG Tablet) 1 TAB PO Q6HP PRN pain #6 TAB Ondansetron (Zofran 4MG Odt) 4 MG PO Q8HP PRN NAUSEA AND VOMITING #10 ODT ED Critical Care Critical Care No at [id number]
[2016-12-28 21:45] LABS: AMPHETAMINES/METAMPHETAMINES NEGATIVE ng/mL (<1000)
[2016-12-28 21:47] LABS: HEMOGLOBIN 17.7 g/dL (14.1-18.0); LYMPH # 2.5 K/mm3 (0.7-4.5); LYMPH % 21.6 % (10-50)
[2016-12-28] MEDS ORDERED: PERCOCET1 TAB PO (22:21)
[2016-12-28] MEDS ORDERED: ZOFRAN ODT4 MG PO (22:21)
[2016-12-28 23:08] VITALS: BP 163/108
== END 2016-12-28 23:08 | disposition home or self-care (01) ==
LOC: ER 21:15
PROVIDERS: Emergency Medicine
DX: K86.1 Other chronic pancreatitis (principal); K86.81 Exocrine pancreatic insufficiency; F17.210 Nicotine dependence, cigarettes, uncomplicated; F41.9 Anxiety disorder, unspecified; F32.9 Major depressive disorder, single episode, unspecified; I10 Essential (primary) hypertension; Z79.899 Other long term (current) drug therapy
CPT/HCPCS: J2405

== ENCOUNTER 2016-12-31 12:38 | Inpatient (IN) | payer MEDICAID ==
[~2016-12-31] VITALS: Ht 185.4 cm; Wt 75.5 kg
[~2016-12-31 12:38] MED LIST changes: +ZOFRAN ODT4 MG PO
[2016-12-31 12:44] VITALS: BP 150/114
--- NOTE | 2016-12-31 13:19 | Emergency Room Report ---
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 N Clinical Suspician of Infection? N Mental Status: 1 - Regular (Normal Baseline) Sepsis Risk:Low Sepsis Risk Have you (or family members/close friends) recently traveled outside the [place]? N If Yes, where/when: Have you had exposure to infectious disease within the past month? N TB? Other? Specify: Source patient, RN notes reviewed Exam Limitations no limitations Comment first diagnosed with Pancreatitis 2 1/2 years ago and combination of Gallstones and alcohol. He denies alcohol use now but has had 15 recurrences over the past 2 1/2 years and recently more frequent. Last seen here on 12/[address] Cheung, his PCP in [place] yesterday and has an appointment with Dr. Barreto , A GI specialist tomorrow. Now with worsening abdominal pain in the epigastrium and some runny diarrhea but no blood. He denies any IV drug use but has been to a pain clinic in the past and dismissed because he missed a pill count. Has appointment with a Pain Clinic on Jan.13 Cardiac Chest Pain Chest pain indicative of cardiac No ALLERGIES Coded Allergies: lisinopril (LIGHTHEADED 11/26/16) morphine (I-HIVES 11/26/16) Home Medications Active Scripts OXYCODONE HCL/ACETAMINOPHEN (Percocet 5-325 MG Tablet) 1 TAB PO Q6HP PRN pain #6 TAB Prov: 12/28/16 Ondansetron (Zofran 4MG Odt) 4 MG PO Q8HP PRN NAUSEA AND VOMITING #10 ODT Prov: 12/28/16 Reported Medications Gabapentin (Gabapentin 300MG) 600 MG PO QHS Gabapentin (Gabapentin 300MG) 300 MG PO QAM METHOCARBAMOL (Methocarbamol) 500 MG PO TID Escitalopram Oxalate (Lexapro 20MG) 20 MG PO DAILY Hydralazine Hcl (Hydralazine 25MG Tab) 25 MG PO BID History Medical History General CAD? No Angina: No CA: No Hypertension? Yes Hyperlipidemia? No CHF? No DVT? No PE? No COPD? No Asthma? No Anemia? No GERD? Yes Gastric ulcers? No GI Bleed? No Hernia? No Thyroid Problems? No Hypothyroidism? No CVA? No Seizures? No Diabetes? No Renal Insuffiency? No End Stage Renal Disease? No UTI? Yes Stones? Yes GB Disease: No Nephritic Syndrome? No Asplenia? No Hepatitis? No Sickle Cell Disease? No Arthritis? No Migraines? No Cataracts? No Glaucoma? No MRSA? No HIV? No TB? No Anxiety? Yes Depression? Yes Cancer? No More? Yes Additional hx: CHRONIC PANCREATITIS Immunization Hx DT/Tetanus Unknown Pneumonia Received In Past Surgical Hx Previous Surgery?Y GALLBLADDER ERCP Family History Family Hx Diabetes No CAD Yes Hypertension Yes Hyperlipidemia Yes Cancer Yes TB No Social History Smoking Hx Smoker: Current Every Day Smoker Tobacco: Yes Type Cigarettes Packs/day < 1 Pack Alcohol Alcohol: No Review of Systems All Other Systems Reviewed and Negative Constitutional see HPI Gastrointestinal see HPI Physical Exam Vital Signs Vital Signs Date Time Temp Pulse Resp B/P Pulse O2 O2 Flow FiO2 Ox Delivery Rate 12/31 1714 98.4 80 20 149/112 97 12/31 1707 16 12/31 1345 98.5 90 16 146/109 97 12/31 1329 16 12/31 1244 98.5 100 18 150/114 97 General Appearance normal appearance, WD/WN, no apparent distress Respiratory Status No: respiratory distress. 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 Yes Abdirizak was queried for this patient? Yes Reference #: [id number] Results/Orders Laboratory Tests 12/31/16 1340: Opiates Screen NEGATIVE, Urine Methadone Screen NEGATIVE, Barbiturates NEGATIVE, Phencyclidine Screen NEGATIVE, Amphetamines Screen NEGATIVE, Benzodiazepines Screen NEGATIVE, Cocaine Screen NEGATIVE, Marijuana (THC) Screen NEGATIVE, Urine Color YELLOW, Urine Appearance CLEAR, Urine pH 6.5, Ur Specific [place] 1.015, Urine Protein NEGATIVE, Urine Ketones NEGATIVE, Urine Blood TRACE-INTACT, Urine Nitrate NEGATIVE, Urine Bilirubin 1+ H, Urine Urobilinogen 0.2, Ur Leukocyte Esterase NEGATIVE, Urine RBC 3-5, Urine WBC OCC, Ur Squamous Epith Cells OCC, Urine Bacteria 1+, Urine Mucus OCC, Urine Glucose NEGATIVE 12/31/16 1321: CA 19-9 Antigen Pending 12/31/16 1321: Sodium 141, Potassium 4.0, Chloride 105, Carbon Dioxide 28, BUN 14, Creatinine 0.9, Estimated Creat Clear 118, Estimated GFR (MDRD) 93, Glucose 123 H, Calcium 9.2, Total Bilirubin 0.8, AST 25, ALT 51, Alkaline Phosphatase 232 H, Total Protein 7.6, Albumin 4.1, Globulin 3.5 H, Albumin/Globulin Ratio 1.2, Amylase 45, Lipase 239, WBC 11.9 H, RBC 5.49, Hgb 18.3 *H, Hct 53.0 H, MCV 96.5, RDW 13.5, Plt Count 265, MPV 10.2, Gran % 77.8, Gran # 9.3 H, Lymphocytes % 14.8, Monocytes % 4.9, Eosinophils % 2.0, Basophils % 0.5, Lymphocytes # 1.8, Monocytes # 0.6, Eosinophils # 0.2, Basophils # 0.1, PUBS MCHC 34.6, MCH 33.4 H Current Medication Orders Sig/Luther Start time Last Medication Dose Route Stop Time Status Admin Hydromorphone HCl 1 MG ONCE ONE 12/31 1914 r IV 01/01 1916 Promethazine HCl 12.5 MG ONCE ONE 12/31 1914 AC IV 01/01 1916 Sodium Chloride 25 ML ONCE ONE 12/31 1914 AC IV 12/31 1928 Hydromorphone HCl 0 .STK-MED ONE 12/31 1706 DCr .ROUTE Ondansetron HCl 0 .STK-MED ONE 12/31 1706 DC .ROUTE Hydromorphone HCl 0.5 MG ONCE ONE 12/31 170 DCr 12/31 IV 12/31 1700 170 Ondansetron HCl 4 MG ONCE ONE 12/31 170 DC 12/31 IV 12/31 1700 170 Sodium Chloride 1,000 ML .STK-MED ONE 12/31 1424 DC IV Diatrizoate Meglum/ 30 ML ONCE ONE 12/31 1415 DC 12/31 Diatrizoate Sod PO 12/31 1416 1411 Diatrizoate Meglum/ 0 .STK-MED ONE 12/31 1406 DC Diatrizoate Sod .ROUTE Sodium Chloride 1,000 ML .STK-MED ONE 12/31 1320 DC IV Pantoprazole Sodium 0 .STK-MED ONE 12/31 1319 DC IV Hydromorphone HCl 0 .STK-MED ONE 12/31 1318 DCr .ROUTE Ondansetron HCl 0 .STK-MED ONE 12/31 1318 DC .ROUTE Hydromorphone HCl 0.5 MG ONCE ONE 12/31 1315 DCr 12/31 IV 12/31 1316 1329 Ondansetron HCl 4 MG ONCE ONE 12/31 1315 DC 12/31 IV 12/31 1316 1328 Pantoprazole Sodium 40 MG ONCE ONE 12/31 1315 DC 12/31 IV 12/31 1316 1328 Sodium Chloride 10 ML PRN PRN 12/31 1315 AC IV 01/01 1309 Sodium Chloride 10 ML ONCE ONE 12/31 1315 DC IV 12/31 1316 Sodium Chloride 1,000 ML .Q1H1M 12/31 1315 DC 12/31 IV 12/31 1415 1329 Sodium Chloride 10 ML PRN PRN 12/31 1315 AC IV 01/01 1310 Sodium Chloride 1,000 ML .Q1H1M 12/31 1315 DC IV 12/31 1415 Sodium Chloride 10 ML PRN PRN 12/31 1315 AC IV 01/01 1310 Orders Procedure Date/time Status DIET-NOTHING BY MOUTH 12/31 D Active CBC WITH AUTO DIFF 12/[address] ABD/PELVIS REQ 12/31 1313 Complete IV SALINE LOCK 12/31 1311 Active URINALYSIS/COMPLETE 12/31 1311 Complete LIPASE 12/31 1311 Complete DRUG ABUSE SCREEN (10) 12/31 1311 Complete CA 19-9 12/31 1311 Active CHEM 12 PROFILE 12/31 1311 Complete AMYLASE 12/31 1311 Complete XRAY/CT/US XRAY/CT/US CT abdomen, pelvis CT interpretation by discussed w/radiologist Time results known: 1909 CT Results worsening acute on chronic pancreatitis Departure Departure Time of Disposition 1910 Disposition Still a Patient Clinical Impression Primary Impression: Acute on chronic pancreatitis Condition STABLE Referrals MIHIR CHEUNG (PCP/Family) Additional Instructions Admitted to Acute Care by Dr. Reeder Discharge Counseling Counseled pt/family regarding diagnosis, test results, medications/RX, follow up needs ED Critical Care Critical Care No If Critical Care minutes are documented, the time involved in the performance of seperately reportable procedures was not counted toward critical care time documented. I directly delivered medical care to this critically ill and/or injured patient. Timely evaluation and treatment was necessary to address the significant organ system(s) dysfunction present in this patient. at 1912
[2016-12-31 13:53] LABS: URINE BLOOD TRACE-INTACT (NEG)
[2016-12-31 13:57] LABS: URINE BILIRUBIN - DIPSTICK 1+ (NEG)
[2016-12-31 14:02] LABS: URINE SQUAMOUS CELLS OCC #/hpf (OCC)
[2016-12-31 14:03] LABS: AMPHETAMINES/METAMPHETAMINES NEGATIVE ng/mL (<1000)
--- NOTE | 2016-12-31 16:44 | RADIOLOGY REPORT PS360 ---
CT ABD PELVIS W/O CONTRAST CLINICAL INDICATION: Abdominal pain, pancreatitis ACUTE OR CHRONIC PANCREATITIS ORDERING PHYSICIAN: Xuan Patton MD PATIENT AGE: 41 years COMPARISON: 12/23/2016 TECHNIQUE: Axial images obtained with sagittal and coronal reformats. PROCEDURE: Oral Contrast: Gastroview IV Contrast: None . FINDINGS: Evaluation of the abdomen is limited without the benefit of IV contrast especially in this patient with history of pancreatitis. Oral contrast was utilized. There are mild atelectatic changes in the left lung base. There is diffuse hepatic steatosis. Prior cholecystectomy without biliary dilatation. Spleen and adrenal glands are unremarkable. There is diffuse pancreatic ductal dilatation as before with be de kimberly pancreatic duct consistent with chronic pancreatitis. Pancreatic head is slightly enlarged with heterogeneous density as before consistent with acute pancreatitis superimposed upon chronic pancreatitis. There is thickening of the gastric antrum and duodenal bulb consistent with underlying inflammatory changes. There is also thickening of the descending duodenum. Stranding of the fat in the right upper quadrant appear slightly worse on today's exam. There is mild thickening of the anterior pararenal fascia on the right. No obvious gas evident within the pancreatic bed There are bilateral nonobstructing renal calculi. There is mild diffuse thickening of the colon which may be due to nondistention or diffuse colitis. Oral contrast given is not yet opacified the transverse and ascending colon. No acute bony anomalies. IMPRESSION: 1. Acute upon chronic pancreatitis appears slightly worse compared to 12/23/2016. 2. Diffuse thickening of the gastric antrum, pylorus, and duodenum is with gastritis/duodenitis which may be secondary response to the underlying pancreatitis. 3. Thickening of the colon which may be due to colitis and/or nondistention.
[2016-12-31 17:02] LABS: LYMPH # 1.8 K/mm3 (0.7-4.5); LYMPH % 14.8 % (10-50)
[2016-12-31 17:03] LABS: HEMOGLOBIN 18.3 g/dL (14.1-18.0)
[2016-12-31 22:12] VITALS: BP 160/100
[2016-12-31 22:15] VITALS: BP 140/90
[2016-12-31 23:39] VITALS: BP 140/90
[2017-01-01 03:48] VITALS: BP 148/93
--- NOTE | 2017-01-01 07:20 | PHARMACY CLINIC NOTE ---
Patient Demographics Patient Demographics Admission date: 12/31/16 Date: 01/01/17 Time: 0719 Allergies Coded Allergies: lisinopril (LIGHTHEADED 11/26/16) morphine (I-HIVES 11/26/16) HEIGHT- FT: 6 IN: 1.00 K.524 VTE General Information Labs: Laboratory Tests 12/31 1321 Hematology Hgb (14.1 - 18.0 g/dL) 18.3 *H Hct (42.0 - 52.0 %) 53.0 H Plt Count (142 - 424 K/mm3) 265 Disclaimer The following section includes nursing documentation that has been pulled in for pharmacy review. Patient's VTE score: 2 Patient's VTE Risk: VERY LOW RISK Clinical trial participant? No VTE prophylaxis NQF [id number] VTE prophylaxis ordered? Yes Type of prophylaxis/treatment: [place] at 0719
[2017-01-01 07:28] LABS: LYMPH # 2.7 K/mm3 (0.7-4.5)
[2017-01-01 07:38] LABS: HEMOGLOBIN 14.9 g/dL (14.1-18.0)
[2017-01-01 08:00] VITALS: BP 146/109
[2017-01-01 08:29] VITALS: BP 148/93
--- NOTE | 2017-01-01 09:01 | HISTORY AND PHYSICAL REPORT ---
History and Physical ([facility]) Date of admission: 12/31/16 Chief complaint: abdominal pain with nausea, vomiting and diarrhea History: History of Present Illness: Mr Soliman is a 41 year old male with a history of acute and chronic pancreatitis and chronic abdominal pain who presented to the ER with worsening abdominal pain with vomiting and diarrhea. He felt like he was becoming dehydrated and thus presented to the ER. He was also seen in the ER 3 days ago and given pain and antiemetic meds and IVF and sent home. He was scheduled to see Dr. Barreto today. He was also admitted overnight 12/20/16 and has followed with his PCP since then. He has been dismissed from one pain clinic and plans to be admitted to another. Past Medical History: Medical History: CAD? No Angina: No OH: No Hypertension? Yes Hyperlipidemia? No CHF? No DVT? No PE? No COPD? No Asthma? No Anemia? No GERD? Yes Gastric ulcers? No GI Bleed? No Hernia? No Thyroid Problems? No Hypothyroidism? No CVA? No Seizures? No Diabetes? No Renal Insuffiency? No UTI? Yes Stones? Yes GB Disease: No Nephritic Syndrome? No Asplenia? No Hepatitis? No Sickle Cell Disease? No Arthritis? No Migraines? No Cataracts? No Glaucoma? No MRSA? No HIV? No TB? No Anxiety? Yes Depression? Yes Cancer? No More? Yes Additional hx: CHRONIC PANCREATITIS Surgical history: Previous Surgery?Y GALLBLADDER ERCP Medications: Active Scripts OXYCODONE HCL/ACETAMINOPHEN (Percocet 5-325 MG Tablet) 1 TAB PO Q6HP PRN PAIN #6 TAB Prov: 12/28/16 Ondansetron (Zofran 4MG Odt) 4 MG PO Q8HP PRN NAUSEA AND VOMITING #10 ODT Prov: 12/28/16 Reported Medications Gabapentin (Gabapentin 300MG) 600 MG PO QHS Gabapentin (Gabapentin 300MG) 300 MG PO QAM METHOCARBAMOL (Methocarbamol) 500 MG PO TID Escitalopram Oxalate (Lexapro 20MG) 20 MG PO DAILY Hydralazine Hcl (Hydralazine 25MG Tab) 25 MG PO BID Allergies: Coded Allergies: lisinopril (LIGHTHEADED 11/26/16) morphine (I-HIVES 11/26/16) Family History: Family history: Postive for: CAD, DM, HTN, stroke. Social History: Smoking Hx Tobacco: Yes Smoker: Current Every Day Smoker Type: Cigarettes Packs/day: < 1 Pack Are you exposed to second hand Yes Alcohol: Alcohol: No Hx of Drug Use: Drug Use? No Review of Systems: Constitutional No: chills, recent weight loss. ENT Positive for: sinus problems. No: ear ache, sore throat. Cardiovascular No: chest pain, edema, palpitations. Respiratory No: shortness of air, non-productive, pneumonia, wheezing. GI Positive for: GERD, abdominal pain, diarrhea, nausea, vomitting. No: constipation, hematemeis, hematochezia, hernia, melena. (male) No: hematuria. Neurological Positive for: headache. No: dizziness, seizure, syncope. Physical Exam: Vital signs: 1ST Vital Signs Result Date Time Pulse Ox 97 12/31 1244 B/P 150/114 12/31 1244 Temp 98.5 12/31 1244 Pulse 100 12/31 1244 Resp 18 12/31 1244 O2 Delivery ROOM AIR 12/31 2212 Exam: General appearance: normal appearance, alert, active, no acute distress, well -developed, well-nourished Eyes: anicteric ENT: mucous membranes moist, pharynx normal, tympanic membranes normal Neck: no carotid bruit, lymphadenopathy (absent), thyroid (normal) Cardiovascular: regular rate & rhythm Respiratory: clear to auscultation (bilat anterior and posterior) ABD: non-distended, soft, bowel sounds present, tenderness (epigastric, RUQ) Lab data: Labs: Laboratory Tests 01/01/17 0600: Sodium 140, Potassium 4.4, Chloride 110 H, Carbon Dioxide 27, BUN 12, Creatinine 0.9, Estimated Creat Clear 115, Estimated GFR (MDRD) 93, Glucose 136 H, Calcium 8.0 L 01/01/17 0600: Amylase 40, Lipase 284, WBC 9.7, RBC 4.50 L, Hgb 14.9, Hct 43.9, MCV 97.7, RDW 13.5, Plt Count 196, MPV 8.7, Gran % 59.7, Gran # 5.8, Lymphocytes % 28.0, Monocytes % 6.4, Eosinophils % 5.3, Basophils % 0.5, Lymphocytes # 2.7, Monocytes # 0.6, Eosinophils # 0.5 H, Basophils # 0.1, PUBS MCHC 33.9, MCH 33.1 H 12/31/16 1340: Opiates Screen NEGATIVE, Urine Methadone Screen NEGATIVE, Barbiturates NEGATIVE, Phencyclidine Screen NEGATIVE, Amphetamines Screen NEGATIVE, Benzodiazepines Screen NEGATIVE, Cocaine Screen NEGATIVE, Marijuana (THC) Screen NEGATIVE, Urine Color YELLOW, Urine Appearance CLEAR, Urine pH 6.5, Ur Specific [place] 1.015, Urine Protein NEGATIVE, Urine Ketones NEGATIVE, Urine Blood TRACE-INTACT, Urine Nitrate NEGATIVE, Urine Bilirubin 1+ H, Urine Urobilinogen 0.2, Ur Leukocyte Esterase NEGATIVE, Urine RBC 3-5, Urine WBC OCC, Ur Squamous Epith Cells OCC, Urine Bacteria 1+, Urine Mucus OCC, Urine Glucose NEGATIVE 12/31/16 1321: Sodium 141, Potassium 4.0, Chloride 105, Carbon Dioxide 28, BUN 14, Creatinine 0.9, Estimated Creat Clear 118, Estimated GFR (MDRD) 93, Glucose 123 H, Calcium 9.2, Total Bilirubin 0.8, AST 25, ALT 51, Alkaline Phosphatase 232 H, Total Protein 7.6, Albumin 4.1, Globulin 3.5 H, Albumin/Globulin Ratio 1.2, Amylase 45, Lipase 239, WBC 11.9 H, RBC 5.49, Hgb 18.3 *H, Hct 53.0 H, MCV 96.5, RDW 13.5, Plt Count 265, MPV 10.2, Gran % 77.8, Gran # 9.3 H, Lymphocytes % 14.8, Monocytes % 4.9, Eosinophils % 2.0, Basophils % 0.5, Lymphocytes # 1.8, Monocytes # 0.6, Eosinophils # 0.2, Basophils # 0.1, PUBS MCHC 34.6, MCH 33.4 H Radiology results: Results: 12/31/16 CT of abdomen IMPRESSION: 1. Acute upon chronic pancreatitis appears slightly worse compared to 12/23/2016. 2. Diffuse thickening of the gastric antrum, pylorus, and duodenum is with gastritis/duodenitis which may be secondary response to the underlying pancreatitis. 3. Thickening of the colon which may be due to colitis and/or nondistention. Diagnosis(es): 1. Acute on chronic pancreatitis 2. Abdominal pain Plan: pain and nausea management; GI rest; GI consult (Renee Lafleur APRN) Date of admission: 12/31/16 Diagnosis(es): 1. Acute on chronic pancreatitis 2. Abdominal pain Plan: Pt seen and examined. Appears comfortable. He apparently is in process of changing his GI physicians and had oupt appt with Dr. Barreto today. THe ER physician spoke to DR. Barreto last night and he advised admission for IVF, pain management and antiemetics and he would see patient on Friday. (Christine Reeder MD) at 0915 at [phone]
[2017-01-01 14:39] LABS: AEROMONAS NOT DETECTED (NOT DETECTE); ASTROVIRUS NOT DETECTED (NOT DETECTE); CYCLOSPORA CAYETANENSIS NOT DETECTED (NOT DETECTE); E COLI O157 NOT DETECTED (NOT DETECTE); ENTEROAGGREGATIVE E COLI NOT DETECTED (NOT DETECTE); ENTEROPATHOGENIC E COLI NOT DETECTED (NOT DETECTE); ENTEROTOXIGENIC E COLI NOT DETECTED (NOT DETECTE); NOROVIRUS NOT DETECTED (NOT DETECTE); SAPOVIRUS NOT DETECTED (NOT DETECTE); SHIGA-LIKE TOXIN PROD. E COLI NOT DETECTED (NOT DETECTE); SHIGELLA/ENTEROINVASIVE E COLI NOT DETECTED (NOT DETECTE); VIBRIO CHOLERAE NOT DETECTED (NOT DETECTE)
[2017-01-01 16:00] VITALS: BP 145/100
[2017-01-01 19:00] VITALS: BP 160/59
[2017-01-01 19:50] VITALS: BP 160/59
[2017-01-02 04:04] VITALS: BP 139/89
[2017-01-02 07:40] VITALS: BP 145/94
[2017-01-02 08:18] VITALS: BP 145/94
--- NOTE | 2017-01-02 08:32 | ACUTE CARE PROGRESS NOTE (QUA) ---
Progress Notes Subjective Date 01/02/17 Time 0725 Note Pt resting in bed watching tv and texting. He denies nausea or vomiting. He has been tolerating clear liquids without difficulty. He denies any loose stools since yesterday. He continues with upper abdominal pain and reports that he has been ambulating in the hallways overnight. Objective Findings Laboratory Tests 01/01/17 1425: Stl Aeromonas (PCR) NOT DETECTED, Stl Cyclospora species NOT DETECTED, Stool Rotavirus (PCR) NOT DETECTED, Stool Astrovirus (PCR) NOT DETECTED, Stool Campylobacter PCR NOT DETECTED, Stool Cryptosporidium PCR NOT DETECTED, Stl E. histolytica PCR NOT DETECTED, Stool Giardia Lamblia PCR NOT DETECTED, Stl P. shigelloides PCR NOT DETECTED, Stool Sapovirus (PCR) NOT DETECTED, Stool Vibrio (PCR) NOT DETECTED, Stl Vibrio cholerae PCR NOT DETECTED, Stl Norovirus GI/GII PCR NOT DETECTED, Adenovirus (PCR) NOT DETECTED, C. difficile Tox (PCR) NOT DETECTED, E. coli (PCR) NOT DETECTED, Salmonella (PCR) NOT DETECTED, Yersinia ( PCR) NOT DETECTED Vital Signs Date Time Temp Pulse Resp B/P Pulse O2 O2 Flow FiO2 Ox Delivery Rate 01/02 0818 98.2 64 18 145/94 95 01/02 0740 98.2 64 18 145/94 95 ROOM AIR 01/02 0701 16 01/02 0404 98.5 73 18 139/89 95 ROOM AIR 01/02 0258 18 01/01 2300 16 01/01 1950 98.6 77 16 160/59 97 01/01 1900 98.6 77 20 160/59 97 ROOM AIR 01/01 1850 20 01/01 1600 97.2 64 22 145/100 96 ROOM AIR 01/01 1500 16 01/01 1059 16 Last VS-Temp:98.2 B/P:145/94 Pulse:64 Resp:18 SaO2:95 ROOM AIR Last weight lbs:166 oz:8 K.524 Method:Bed Scales Exam General appearance: alert, awake, no acute distress Cardiovascular: regular rate & rhythm, normal peripheral pulses Respiratory: CTAB A&P ABD: non-distended, no rebound, soft, no guarding, no organomegaly, no palpable mass, bowel sounds present, ttp bilateral upper quads Extremities: moves all, no peripheral edema, warm, no calf tenderness Skin: dry, intact, warm 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, oriented, speech clear, no focal deficit Reviewed: medications, vital signs, lab results, radiology report, nursing notes Assessment/Plan Problem List 1. Acute on chronic pancreatitis 2. Abdominal pain Patient condition Improving Plan: Continue current care with plan for Dr. Barreto to see patient tomorrow. This inpt stay is expected to cross 2 MNs from start of care Yes (LAZARA CRAWFORD APRN) Subjective Date 01/02/17 Assessment/Plan Problem List 1. Acute on chronic pancreatitis 2. Abdominal pain Plan: Pt seen and examined. Concur with above assessment and plan. (Christine Reeder MD) at 0831 at [phone]
[2017-01-02 16:04] VITALS: BP 130/75
[2017-01-02 19:40] VITALS: BP 139/93
[2017-01-02 20:10] VITALS: BP 139/93
[2017-01-03] VITALS (15 sets, daily range): BP systolic 126–172; BP diastolic 76–107
--- NOTE | 2017-01-03 08:49 | ACUTE CARE PROGRESS NOTE (QUA) ---
Progress Notes Subjective Date 01/03/17 Time 0720 Note Pt resting quietly in bed watching tv. Pt reports feeling much better today, denies nausea, notes pain is well-managed with prn meds. He is voiding normally, has had no further loose stools. He is eager for consult with Dr. Barreto today. Objective Findings Vital Signs Date Time Temp Pulse Resp B/P Pulse O2 O2 Flow FiO2 Ox Delivery Rate 01/03 0740 98.2 68 18 147/99 95 01/03 0724 98.2 68 18 147/99 95 ROOM AIR 01/03 0706 20 01/03 0404 99.1 68 20 152/93 95 ROOM AIR 01/03 0320 18 01/02 2318 18 01/02 2010 98.3 66 18 139/93 94 01/02 1940 98.3 66 18 139/93 94 ROOM AIR 01/02 1855 18 01/02 1604 98.3 73 18 130/75 95 ROOM AIR 01/02 1457 18 01/02 1109 18 Last VS-Temp:98.2 B/P:147/99 Pulse:68 Resp:18 SaO2:95 ROOM AIR Last weight lbs:166 oz:8 K.524 Method:Bed Scales Exam General appearance: alert, awake, no acute distress Cardiovascular: regular rate & rhythm, normal peripheral pulses Respiratory: CTAB A&P ABD: non-distended, no rebound, soft, no guarding, no organomegaly, no palpable mass, bowel sounds present, ttp bilateral upper quads Extremities: moves all, no peripheral edema 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, oriented, speech clear, no focal deficit Reviewed: medications, vital signs, lab results, radiology report, nursing notes Assessment/Plan Problem List 1. Acute on chronic pancreatitis 2. Abdominal pain Patient condition Stable Plan: Dr. Barreto to see pt today This inpt stay is expected to cross 2 MNs from start of care Yes (LAZARA CRAWFORD APRN) Assessment/Plan Problem List 1. Acute on chronic pancreatitis 2. Abdominal pain Plan: Pt seen and examined this AM. He is requesting Diluadid on schedule q4h. He is to see Dr. Barreto today for possible ERCP. (Christine Reeder MD) at [phone] at [phone]
--- NOTE | 2017-01-03 13:09 | Operative Note ---
ERCP ([facility]) Procedure date: 01/03/17 Date of : 75 Procedure:ERCP Endoscopic retrograde cholangiopancreatography Indications: Mr. Soliman is a 41-year-old gentleman with acute/chronic pancreatitis. He has been followed at the [facility] and has had former ERCP Dr. Nj Long 10-12 months ago. His chronic pancreatitis was diagnosed 2 years ago. He was a heavy alcohol user and stopped more than 1 year ago. He is on Creon 24 2 capsules by mouth before meals. He has had more abdominal pain and has been to the emergency department more frequently. His most recent CAT scan showed acute on chronic pancreatitis with edema in the head of the gland and dilation of the pancreatic duct in the body and tail. There was also edema of the gastric wall and some colonic edema. The patient does have some diarrhea, gassiness and periumbilical abdominal pain. ERCP is performed for further evaluation. Performing Provider: Oralia Barreto MD Referrring Provider: Judson Reeder M.D./Michelle Nugent M.D. Sedation: MAC sedation Procedure: Prior to the procedure, a history and physical exam was performed, and patient medications and allergies were reviewed. The risks and benefits of the procedure and the sedation options and risks were discussed with the patient. All questions were answered and informed consent was obtained. Patient identification and proposed procedure were verified by the physician and the nurse. The patient was placed in a left lateral decubitus position. Throughout the procedure, the patient's blood pressure, pulse, and oxygen saturations were monitored continuously. Findings: The side-viewing endoscope was passed directly into the upper esophagus past the oropharynx and passed to the second portion of the duodenum. There was moderate reactive gastritis of the antrum and body of the stomach with some bile reflux. The esophagus was normal. The ampulla was well visualized and there was former biliary sphincterotomy identified. The common bile duct was selectively cannulated and the cholangiogram showed a normal caliber common bile duct with normal filling of the intrahepatic biliary system. There was no evidence of stricturing or choledocholithiasis. The pancreatic duct was cannulated. There was marked stricturing within the head of the gland with angulated stricturing. There was proximal or upstream pancreatic ductal dilation up to 7 mm. Attempts were made to pass a guidewire through this long tortuous stricture but this failed to pass into the proximal system to allow deep cannulation of the pancreas or pancreatic stent placement. The findings were most consistent with moderate to severe chronic pancreatitis. Impressions: 1. Moderate to severe chronic pancreatitis with marked stricturing within the pancreatic duct within the head and neck of the pancreas and upstream or proximal pancreatic ductal dilation 2. Normal cholangiogram 3. Bile reflux with moderate reactive gastritis Recommendations: This represents more severe obstructive chronic pancreatitis and endoscopic means are going to be less effective than long-term surgical approach. It is most important to try to avoid endocrine and exocrine dysfunction which will begin to occur (insulin-requiring diabetes and malabsorption) if there is ongoing damage to the pancreas due to outflow obstruction. I do feel that he may need a lateral pancreaticojejunostomy ([place] procedure) or even Whipple. I am going to have him go to a pancreatic surgeon. I would like to obtain endoscopic ultrasound prior to this since there is a greater risk of pancreatic cancer. 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 It would be worth doing genetic testing. Tobacco use /cigarette smoking can greatly accelerate the course of chronic pancreatitis. It is possible that he has had the endoscopic ultrasound and genetic testing at the [facility] and I would like to consolidate and have him return to the pancreas surgeon there (Dr. J Luis Gutierrez). Complications: None EBL (ml): 0 at 1308
--- NOTE | 2017-01-03 14:06 | RADIOLOGY REPORT PS360 ---
ERCP RADIOLOGIC CLINICAL INDICATION: PANCREATITIS, POSSIBLE STENT PLACEMENT ORDERING PHYSICIAN: Christine Reeder MD PATIENT AGE: 41 years Fluoroscopy time: 6 minutes second COMPARISON: CT scan of 12/31/2016 FINDINGS: There are 5 images submitted to of which demonstrate the endoscope in the right upper quadrant. Image #3 and 4 shows some contrast in the right upper quadrant which may been injected into the pancreatic duct. Correlation with fluoroscopic findings are needed. Image #5 demonstrates catheter in the common hepatic duct and common bile duct the tip of the catheter in the portal area in the biliary trifurcation region. No obvious filling defect evident within the common bile duct. IMPRESSION: Limited images submitted as described above. Correlation with fluoroscopic findings needed especially regarding the pancreatic duct injection
[2017-01-04] VITALS: BP 148/92
[2017-01-04 04:36] VITALS: BP 143/88
--- NOTE | 2017-01-04 07:52 | ACUTE CARE PROGRESS NOTE (QUA) ---
Progress Notes Subjective Date 01/04/17 Time 0751 Note Symptoms about the same. Tolerateing full liquids. Had ERCP yesterday and Dr. Barreto is arranging referral to surgeon at for possible Whipple procedure. Objective Findings Last VS-Temp:98.2 B/P: 130/94 Pulse:69 Resp:16 SaO2:98 ROOM AIR Last weight lbs: 166 oz: 8 K.524 Method: Bed Scales Exam General appearance: alert, no acute distress Eyes: anicteric Cardiovascular: regular rate & rhythm Respiratory: clear to auscultation ABD: non-distended, soft, epigastric tenderness Reviewed: medications, vital signs, consult note, nursing notes Assessment/Plan Problem List 1. Acute on chronic pancreatitis 2. Abdominal pain Plan: Discharge home and f/u with PCP, Dr. Nugent, and with Dr. Barreto to arrange referral to This inpt stay is expected to cross 2 MNs from start of care Yes at 0896
[2017-01-04 08:00] VITALS: BP 130/94
[2017-01-04] MEDS ORDERED: PERCOCET1 TAB PO (08:44)
[2017-01-04] MEDS ORDERED: ZOFRAN ODT4 MG PO (08:45)
[2017-01-04 09:41] VITALS: BP 130/94
[2017-01-04 13:07] VITALS: BP 130/94
--- NOTE | 2017-01-04 14:34 | DISCHARGE SUMMARY STANDARD ---
Discharge Summary (FCA2) Date of admission: 12/31/16 Date of discharge: 01/04/17 Problem List: 1. Acute on chronic pancreatitis 2. Abdominal pain History of present illness: History of Present Illness: Mr Soliman is a 41 year old male with a history of acute and chronic pancreatitis and chronic abdominal pain who presented to the ER with worsening abdominal pain with vomiting and diarrhea. He felt like he was becoming dehydrated and thus presented to the ER. He was also seen in the ER 3 days ago and given pain and antiemetic meds and IVF and sent home. He was scheduled to see Dr. Barreto today. He was also admitted to [facility] overnight 12/20/16 and had followed with his PCP. He has been dismissed from one pain clinic and PCP is in the process of admitting him to another. THe ER physician spoke to DR. Barreto and he advised admission for IVF, pain management and antiemetics and he would see patient on Friday. Exam on admission: 1ST Vital Signs Result Date Time Pulse Ox 97 12/31 1244 B/P 150/114 12/31 1244 Temp 98.5 12/31 1244 Pulse 100 12/31 1244 Resp 18 12/31 1244 O2 Delivery ROOM AIR 01/01 2212 Exam: General appearance: normal appearance, alert, active, no acute distress, well -developed, well-nourished Eyes: anicteric ENT: mucous membranes moist, pharynx normal, tympanic membranes normal Neck: no carotid bruit, lymphadenopathy (absent), thyroid (normal) Cardiovascular: regular rate & rhythm Respiratory: clear to auscultation (bilat anterior and posterior) ABD: non-distended, soft, bowel sounds present, tenderness (epigastric, RUQ) Hospital Course: On admission patient received IVF,pain and antiemetics. His symptoms were well controlled. He tolerated liquids well. He had no further diarrhea stools. He ambulated without difficulty. He had ERCP per Dr. Barreto on 01/03/17 with the following assessment/ recommendations: This represented more severe obstructive chronic pancreatitis. Endoscopic means were thought to be less effective than long-term surgical approach. He noted that it was most important to try to avoid endocrine and exocrine dysfunction which will begin to occur (insulin-requiring diabetes and malabsorption) if ongoing damage to the pancreas occurs due to outflow obstruction. He also felt that the patient may need a lateral pancreaticojejunostomy ([place] procedure) or even Whipple. Dr. Barreto planned for the patient to go to a pancreatic surgeon and obtain endoscopic ultrasound prior to this due to a greater risk of pancreatic cancer. Dr. Barreto also noted that this is alcohol-induced chronic pancreatitis but there certainly may be a genetic component and that genetic testing would be beneficial; Tobacco use/cigarette smoking can greatly accelerate the course of chronic pancreatitis; It is possible that he has had the endoscopic ultrasound and genetic testing at the [facility]; and that he would consolidate and have him return to the pancreas surgeon there (Dr. J Luis Gutierrez). On 01/04/17 the patient continued to do well and was discharged. Laboratory data this visit: 01/01/17 0600: Sodium 140, Potassium 4.4, Chloride 110 H, Carbon Dioxide 27, BUN 12, Creatinine 0.9, Estimated Creat Clear 115, Estimated GFR (MDRD) 93, Glucose 136 H, Calcium 8.0 L 01/01/17 0600: Amylase 40, Lipase 284, WBC 9.7, RBC 4.50 L, Hgb 14.9, Hct 43.9, MCV 97.7, RDW 13.5, Plt Count 196, MPV 8.7, Gran % 59.7, Gran # 5.8, Lymphocytes % 28.0, Monocytes % 6.4, Eosinophils % 5.3, Basophils % 0.5, Lymphocytes # 2.7, Monocytes # 0.6, Eosinophils # 0.5 H, Basophils # 0.1, PUBS MCHC 33.9, MCH 33.1 H 12/31/16 1340: Opiates Screen NEGATIVE, Urine Methadone Screen NEGATIVE, Barbiturates NEGATIVE, Phencyclidine Screen NEGATIVE, Amphetamines Screen NEGATIVE, Benzodiazepines Screen NEGATIVE, Cocaine Screen NEGATIVE, Marijuana (THC) Screen NEGATIVE, Urine Color YELLOW, Urine Appearance CLEAR, Urine pH 6.5, Ur Specific Brooten 1.015, Urine Protein NEGATIVE, Urine Ketones NEGATIVE, Urine Blood TRACE-INTACT, Urine Nitrate NEGATIVE, Urine Bilirubin 1+ H, Urine Urobilinogen 0.2, Ur Leukocyte Esterase NEGATIVE, Urine RBC 3-5, Urine WBC OCC, Ur Squamous Epith Cells OCC, Urine Bacteria 1+, Urine Mucus OCC, Urine Glucose NEGATIVE 12/31/16 1321: Sodium 141, Potassium 4.0, Chloride 105, Carbon Dioxide 28, BUN 14, Creatinine 0.9, Estimated Creat Clear 118, Estimated GFR (MDRD) 93, Glucose 123 H, Calcium 9.2, Total Bilirubin 0.8, AST 25, ALT 51, Alkaline Phosphatase 232 H, Total Protein 7.6, Albumin 4.1, Globulin 3.5 H, Albumin/Globulin Ratio 1.2, Amylase 45, Lipase 239, WBC 11.9 H, RBC 5.49, Hgb 18.3 *H, Hct 53.0 H, MCV 96.5, RDW 13.5, Plt Count 265, MPV 10.2, Gran % 77.8, Gran # 9.3 H, Lymphocytes % 14.8, Monocytes % 4.9, Eosinophils % 2.0, Basophils % 0.5, Lymphocytes # 1.8, Monocytes # 0.6, Eosinophils # 0.2, Basophils # 0.1, PUBS MCHC 34.6, MCH 33.4 H 01/01/17 1425: Stl Aeromonas (PCR) NOT DETECTED, Stl Cyclospora species NOT DETECTED, Stool Rotavirus (PCR) NOT DETECTED, Stool Astrovirus (PCR) NOT DETECTED, Stool Campylobacter PCR NOT DETECTED, Stool Cryptosporidium PCR NOT DETECTED, Stl E. histolytica PCR NOT DETECTED, Stool Giardia Lamblia PCR NOT DETECTED, Stl P. shigelloides PCR NOT DETECTED, Stool Sapovirus (PCR) NOT DETECTED, Stool Vibrio (PCR) NOT DETECTED, Stl Vibrio cholerae PCR NOT DETECTED, Stl Norovirus GI/GII PCR NOT DETECTED, Adenovirus (PCR) NOT DETECTED, C. difficile Tox (PCR) NOT DETECTED, E. coli (PCR) NOT DETECTED, Salmonella (PCR) NOT DETECTED, Yersinia ( PCR) NOT DETECTED Imagin12/31/16 CT of abdomen IMPRESSION: 1. Acute upon chronic pancreatitis appears slightly worse compared to 12/23/2016. 2. Diffuse thickening of the gastric antrum, pylorus, and duodenum is with gastritis/duodenitis which may be secondary response to the underlying pancreatitis. 3. Thickening of the colon which may be due to colitis and/or nondistention. 01/03/17 ERCP Impressions: 1. Moderate to severe chronic pancreatitis with marked stricturing within the pancreatic duct within the head and neck of the pancreas and upstream or proximal pancreatic ductal dilation 2. Normal cholangiogram 3. Bile reflux with moderate reactive gastritis Discharge medications: Continue taking these medications: Escitalopram Oxalate (Lexapro 20MG) 20 MG TABLET 20 MILLIGRAM ORAL DAILY Hydralazine Hcl (Hydralazine 25MG Tab) 25 MG TABLET 25 MILLIGRAM ORAL TWICE A DAY Gabapentin (Gabapentin 300MG) 300 MG CAPSULE 600 MILLIGRAM ORAL AT BEDTIME NIGHTLY Gabapentin (Gabapentin 300MG) 300 MG CAPSULE 300 MILLIGRAM ORAL EVERY MORNING METHOCARBAMOL (Methocarbamol) 500 MG TABLET 500 MILLIGRAM ORAL THREE TIMES A DAY Ondansetron (Zofran 4MG Odt) 4 MG TAB.RAPDIS 4 MILLIGRAM ORAL EVERY 8 HOURS NEEDED as needed for NAUSEA AND VOMITING Qty = 12 This prescription has been renewed The following medications have been changed: Old: OXYCODONE HCL/ACETAMINOPHEN (Percocet 5-325 MG Tablet) 1 EACH TABLET 1 TABLET ORAL EVERY 6 HOURS NEEDED as needed for PAIN Qty = 6 New: OXYCODONE HCL/ACETAMINOPHEN (Percocet 5-325 MG Tablet) 1 EACH TABLET 1-2 TABLET ORAL EVERY 6 HOURS NEEDED as needed for PAIN Qty = 12 Disposition: Discharged to home in stabe and satifactory condition. To FU with Dr. Barreto: Service Date: 01/13/17 Referred To: Mark Barreto [address] [place] [id number] Diagnosis: Chronic pancreatitis Follow up: 5-7 MIHIR Carrasco Activity: Cont Current activity Diet: Low Fat/Low Cholesterol Discharge to: HOME Agency needed? N Dr. Barreto is arranging referral to surgeon at for possible Whipple procedure. at [phone]
== END 2017-01-04 12:20 | disposition home or self-care (01) | DRG 440 ==
LOC: ER 12:38 → 2ND 19:23
PROVIDERS: Family Medicine; General Practice; Internal Medicine Gastroenterology
PROC: 0FJD8ZZ Inspection of Pancreatic Duct, Via Natural or Artificial Opening Endoscopic (ICD-10-PCS; principal; 2017-01-03 11:52)
DX: K85.90 Acute pancreatitis without necrosis or infection, unspecified (principal); I10 Essential (primary) hypertension; K86.1 Other chronic pancreatitis
CPT/HCPCS: J2405